=== PATIENT | female | born 1950 | race African-American/Black ===

== ENCOUNTER 2018-05-15 12:17 | Inpatient (IN) | payer MEDICARE, OTHER ==
[2018-05-15] MEDS ORDERED: CONTRAST GIVEN. MC (12:45)
[2018-05-15] MEDS: IOHEXOL 300 MG/ML 100ML VIAL. IV (12:45)
[2018-05-15] MEDS: ONDANSETRON PF 4 MG/2 ML VIAL. IV ×3 (12:57→17:42)
[2018-05-15] MEDS: IV NORMAL SALINE 1000ML BAG 1,000 ML IV ×2 (12:58→16:09)
[2018-05-15] MEDS: DICYCLOMINE 20 MG/2 ML AMPUL. IM (13:00)
[2018-05-15] MEDS: PANTOPRAZOLE IV PUSH 40 MG VIAL. IVP ×2 (13:02→17:47)
[2018-05-15 13:11] LABS: ADD MAN DIFF? NO
[2018-05-15 13:13] LABS: BASO # 0.1 x10^3/uL (0.0-0.2); BASO % 1 % (0-3); EOS # 0.1 x10^3/uL (0.0-0.7); EOS % 1 % (0-3); HEMOGLOBIN 13.4 g/dL (12.0-15.5); LYMPH # 3.4 x10^3/uL (1.0-4.8); LYMPH % 22 % (24-48); MEAN CORPUSCULAR HEMOGLOBIN 29 pg (25-35); MEAN CORPUSCULAR HGB CONC 34 g/dL (31-37); MEAN CORPUSCULAR VOLUME 87 fL (79-100); MONO # 0.7 x10^3/uL (0.0-1.1); MONO % 4 % (0-9); NEUT # 11.6 x10^3uL (1.8-7.7); NEUT % 73 % (31-73); PLATELET COUNT 441 x10^3/uL (140-400); RED BLOOD COUNT 4.61 x10^6/uL (3.50-5.40); RED CELL DISTRIBUTION WIDTH 14.8 % (11.5-14.5); WHITE BLOOD COUNT 15.9 x10^3/uL (4.0-11.0)
[2018-05-15 13:22] LABS: BILIRUBIN,URINE NEGATIVE (NEG); CLARITY,URINE CLEAR; COLOR,URINE YELLOW; GLUCOSE,URINE NEGATIVE (NEG); NITRITE,URINE NEGATIVE (NEG); PROTEIN,URINE >=300 mg/dL (NEG-TRACE); UROBILINOGEN,URINE 0.2 mg/dL (0.2 mg/dL)
[2018-05-15 13:34] LABS: BACTERIA,URINE MODERATE /HPF (0-FEW); HYALINE CASTS, URINE MODERATE /HPF; RBC,URINE OCC /HPF (0-2); SQUAMOUS EPITHELIAL CELL,UR FEW /LPF
[2018-05-15 13:44] LABS: BARBITURATES NEG (NEG); BENZODIAZEPINES POS (NEG); CANNABINOIDS POS (NEG); COCAINE NEG (NEG); METHADONE NEG (NEG); OPIATES POS (NEG); PHENCYCLIDINE NEG (NEG)
[2018-05-15 13:46] LABS: AMPHETAMINE/METHAMPHETAMINE NEG (NEG); ETHANOL, URINE NEG (NEG)
[2018-05-15 13:46] LABS: ETHANOL < 10 mg/dL (0-10)
[2018-05-15 13:48] LABS: ANION GAP 14 (6-14); BLOOD UREA NITROGEN 7 mg/dL (7-20); BUN/CREATININE RATIO 7 (6-20); CALCIUM 9.5 mg/dL (8.5-10.1); CARBON DIOXIDE 26 mmol/L (21-32); CHLORIDE 100 mmol/L (98-107); GFR 66.3; GLUCOSE 168 mg/dL (70-99); POTASSIUM 3.2 mmol/L (3.5-5.1); SODIUM 140 mmol/L (136-145)
[2018-05-15 13:53] LABS: ALBUMIN 4.2 g/dL (3.4-5.0); ALBUMIN/GLOBULIN RATIO 1.1 (1.0-1.7); ALK PHOS 68 U/L (46-116); ALT (SGPT) 22 U/L (14-59); AST (SGOT) 16 U/L (15-37); LIPASE 98 U/L (73-393); TOTAL BILIRUBIN 0.1 mg/dL (0.2-1.0); TOTAL PROTEIN 8.2 g/dL (6.4-8.2)
[2018-05-15] MEDS: MORPHINE SULFATE 10 MG/ML VIAL. IV (14:04)
[2018-05-15] MEDS: PROCHLORPERAZINE 10 MG/2 ML VIAL. IV (14:53)
[2018-05-15] MEDS ORDERED: ONDANSETRON PF 4 MG/2 ML VIAL. IV (15:30)
[2018-05-15] MEDS ORDERED: traMADol 50 MG TABLET PO (15:45)
[2018-05-15] MEDS ORDERED: NICOTINE 21MG PATCH. TD (16:00)
[2018-05-15] MEDS ORDERED: POTASSIUM CL 20MEQ D5-0.45NACL 1,000 ML IV (16:15)
[2018-05-15] MEDS: LABETALOL HCL 200 MG TABLET PO ×2 (16:30→20:53)
[2018-05-15] MEDS: MORPHINE SULFATE 4 MG/ML DISP.SYRIN. IV ×2 (17:39→20:54)
[2018-05-15] MEDS: CIPROFLOXACIN 400MG PREMIX 200 ML IV (19:24)
[2018-05-15] MEDS: SIMVASTATIN 20 MG TABLET PO (20:53)
[2018-05-15] MEDS: AMITRIPTYLINE HCL 50 MG TABLET PO (20:53)
[2018-05-15] MEDS ORDERED: CIPROFLOXACIN 400MG PREMIX 200 ML IV (21:00)
[2018-05-16] MEDS: POTASSIUM CL 20MEQ D5-0.45NACL 1,000 ML IV ×3 (00:25→13:00)
[2018-05-16] MEDS: MORPHINE SULFATE 4 MG/ML DISP.SYRIN. IV ×4 (01:22→11:03)
[2018-05-16] MEDS: LABETALOL HCL 200 MG TABLET PO ×2 (05:12→14:00)
[2018-05-16] MEDS: ONDANSETRON PF 4 MG/2 ML VIAL. IV (05:23)
[2018-05-16 06:20] LABS: C DIFF BY PCR Negative (Negative)
[2018-05-16] MEDS: FERROUS SULFATE 325 MG TABLET. PO (08:00)
[2018-05-16] MEDS: CIPROFLOXACIN 400MG PREMIX 200 ML IV ×2 (08:59→20:49)
[2018-05-16] MEDS: PANTOPRAZOLE IV PUSH 40 MG VIAL. IVP (08:59)
[2018-05-16] MEDS: LOSARTAN POTASSIUM 50 MG TABLET. PO (09:00)
[2018-05-16] MEDS ORDERED: ESTROGENS, CONJUGATED 0.3 MG TABLET PO (09:00)
[2018-05-16] MEDS: CITALOPRAM 20 MG TABLET. PO (09:00)
[2018-05-16] MEDS: ESTROGENS, CONJUGATED 0.3 MG TABLET PO (09:00)
[2018-05-16] MEDS: PROCHLORPERAZINE 10 MG/2 ML VIAL. IV ×3 (11:02→22:12)
[2018-05-16] MEDS: METOPROLOL TART IMMED RELEASE 50 MG TABLET. PO ×2 (16:09→20:50)
[2018-05-16] MEDS: SIMVASTATIN 20 MG TABLET PO (20:49)
[2018-05-16] MEDS: AMITRIPTYLINE HCL 50 MG TABLET PO (20:49)
[2018-05-16] MEDS: LACTOBACILLUS RHAMNOSUS GG 1 CAPSULE. PO (20:49)
[2018-05-16] MEDS: HYDROcodone/APAP 7.5/325MG 1 TAB TABLET PO (20:50)
[2018-05-17 05:19] LABS: ADD MAN DIFF? NO
[2018-05-17 05:29] LABS: BASO # 0.1 x10^3/uL (0.0-0.2); BASO % 1 % (0-3); EOS # 0.3 x10^3/uL (0.0-0.7); EOS % 2 % (0-3); HEMATOCRIT 36.4 % (36.0-47.0); LYMPH # 2.6 x10^3/uL (1.0-4.8); LYMPH % 22 % (24-48); MEAN CORPUSCULAR HEMOGLOBIN 29 pg (25-35); MEAN CORPUSCULAR HGB CONC 33 g/dL (31-37); MEAN CORPUSCULAR VOLUME 88 fL (79-100); MONO # 0.7 x10^3/uL (0.0-1.1); MONO % 6 % (0-9); NEUT # 8.1 x10^3uL (1.8-7.7); NEUT % 69 % (31-73); PLATELET COUNT 304 x10^3/uL (140-400); RED BLOOD COUNT 4.16 x10^6/uL (3.50-5.40); RED CELL DISTRIBUTION WIDTH 15.2 % (11.5-14.5); WHITE BLOOD COUNT 11.7 x10^3/uL (4.0-11.0)
[2018-05-17 05:51] LABS: ANION GAP 8 (6-14); BLOOD UREA NITROGEN 4 mg/dL (7-20); CALCIUM 8.9 mg/dL (8.5-10.1); CARBON DIOXIDE 27 mmol/L (21-32); CHLORIDE 105 mmol/L (98-107); CREATININE 0.8 mg/dL (0.6-1.0); GFR 85.8; GLUCOSE 127 mg/dL (70-99); POTASSIUM 3.5 mmol/L (3.5-5.1); SODIUM 140 mmol/L (136-145)
[2018-05-17] MEDS: POTASSIUM CL 20MEQ D5-0.45NACL 1,000 ML IV ×4 (06:02→18:28)
[2018-05-17] MEDS: PROCHLORPERAZINE 10 MG/2 ML VIAL. IV ×3 (06:07→22:19)
[2018-05-17] MEDS: METOPROLOL TART IMMED RELEASE 50 MG TABLET. PO ×2 (08:05→21:58)
[2018-05-17] MEDS: ESTROGENS, CONJUGATED 0.3 MG TABLET PO (08:05)
[2018-05-17] MEDS: FERROUS SULFATE 325 MG TABLET. PO (08:05)
[2018-05-17] MEDS: LACTOBACILLUS RHAMNOSUS GG 1 CAPSULE. PO ×2 (08:05→21:58)
[2018-05-17] MEDS: LOSARTAN POTASSIUM 50 MG TABLET. PO (08:06)
[2018-05-17] MEDS: CITALOPRAM 20 MG TABLET. PO (08:06)
[2018-05-17] MEDS: PANTOPRAZOLE 40 MG TABLET.DR. PO (08:07)
[2018-05-17] MEDS: CIPROFLOXACIN 400MG PREMIX 200 ML IV (08:08)
[2018-05-17] MEDS: HYDROcodone/APAP 7.5/325MG 1 TAB TABLET PO (13:00)
[2018-05-17] MEDS: AMITRIPTYLINE HCL 50 MG TABLET PO (21:58)
[2018-05-17] MEDS: SIMVASTATIN 20 MG TABLET PO (21:58)
[2018-05-18] MEDS: CIPROFLOXACIN 400MG PREMIX 200 ML IV (00:06)
[2018-05-18 05:40] LABS: ADD MAN DIFF? NO
[2018-05-18 05:45] LABS: BASO # 0.1 x10^3/uL (0.0-0.2); BASO % 1 % (0-3); EOS # 0.5 x10^3/uL (0.0-0.7); EOS % 5 % (0-3); HEMATOCRIT 38.6 % (36.0-47.0); HEMOGLOBIN 12.8 g/dL (12.0-15.5); LYMPH # 2.3 x10^3/uL (1.0-4.8); LYMPH % 25 % (24-48); MEAN CORPUSCULAR HEMOGLOBIN 29 pg (25-35); MEAN CORPUSCULAR HGB CONC 33 g/dL (31-37); MEAN CORPUSCULAR VOLUME 88 fL (79-100); MONO # 0.6 x10^3/uL (0.0-1.1); MONO % 7 % (0-9); NEUT # 5.7 x10^3uL (1.8-7.7); NEUT % 62 % (31-73); PLATELET COUNT 319 x10^3/uL (140-400); RED BLOOD COUNT 4.38 x10^6/uL (3.50-5.40); RED CELL DISTRIBUTION WIDTH 14.7 % (11.5-14.5); WHITE BLOOD COUNT 9.2 x10^3/uL (4.0-11.0)
[2018-05-18 06:06] LABS: ANION GAP 10 (6-14); BLOOD UREA NITROGEN 6 mg/dL (7-20); CALCIUM 8.7 mg/dL (8.5-10.1); CARBON DIOXIDE 24 mmol/L (21-32); CHLORIDE 104 mmol/L (98-107); CREATININE 0.9 mg/dL (0.6-1.0); GFR 74.9; GLUCOSE 139 mg/dL (70-99); POTASSIUM 3.4 mmol/L (3.5-5.1); SODIUM 138 mmol/L (136-145)
[2018-05-18] MEDS: PROCHLORPERAZINE 10 MG/2 ML VIAL. IV ×3 (06:06→22:12)
[2018-05-18] MEDS: ONDANSETRON PF 4 MG/2 ML VIAL. IV ×2 (09:09→17:30)
[2018-05-18] MEDS: POTASSIUM CL 20MEQ D5-0.45NACL 1,000 ML IV ×2 (09:32→16:37)
[2018-05-18] MEDS: PANTOPRAZOLE 40 MG TABLET.DR. PO (09:35)
[2018-05-18] MEDS: FERROUS SULFATE 325 MG TABLET. PO ×2 (09:35→13:26)
[2018-05-18] MEDS: HYDROcodone/APAP 7.5/325MG 1 TAB TABLET PO ×2 (09:37→17:29)
[2018-05-18] MEDS: CITALOPRAM 20 MG TABLET. PO (09:37)
[2018-05-18] MEDS: CIPROFLOXACIN HCL 250 MG TABLET. PO (10:20)
[2018-05-18] MEDS: LOSARTAN POTASSIUM 50 MG TABLET. PO (10:55)
[2018-05-18] MEDS: METOPROLOL TART IMMED RELEASE 50 MG TABLET. PO ×2 (10:56→22:12)
[2018-05-18] MEDS: LABETALOL 20 MG/4 ML DISP.SYRIN. IVP ×3 (11:09→20:42)
[2018-05-18] MEDS: MORPHINE SULFATE 2 MG/ML DISP.SYRIN. IV ×3 (12:39→20:40)
[2018-05-18] MEDS: ESTROGENS, CONJUGATED 0.3 MG TABLET PO (13:26)
[2018-05-18] MEDS: LACTOBACILLUS RHAMNOSUS GG 1 CAPSULE. PO ×2 (13:26→21:00)
[2018-05-18] MEDS: AMITRIPTYLINE HCL 50 MG TABLET PO (22:12)
[2018-05-18] MEDS: SIMVASTATIN 20 MG TABLET PO (22:12)
[2018-05-19] MEDS: POTASSIUM CL 20MEQ D5-0.45NACL 1,000 ML IV ×3 (03:07→20:25)
[2018-05-19] MEDS: MORPHINE SULFATE 2 MG/ML DISP.SYRIN. IV ×6 (04:33→22:43)
[2018-05-19] MEDS: ONDANSETRON PF 4 MG/2 ML VIAL. IV ×2 (04:34→08:17)
[2018-05-19 05:26] LABS: ADD MAN DIFF? NO
[2018-05-19 05:38] LABS: BASO % 0 % (0-3); EOS % 0 % (0-3); HEMATOCRIT 43.1 % (36.0-47.0); HEMOGLOBIN 14.4 g/dL (12.0-15.5); LYMPH # 1.9 x10^3/uL (1.0-4.8); LYMPH % 14 % (24-48); MEAN CORPUSCULAR HEMOGLOBIN 29 pg (25-35); MEAN CORPUSCULAR HGB CONC 33 g/dL (31-37); MEAN CORPUSCULAR VOLUME 88 fL (79-100); MONO # 0.9 x10^3/uL (0.0-1.1); MONO % 6 % (0-9); NEUT # 11.3 x10^3uL (1.8-7.7); NEUT % 80 % (31-73); PLATELET COUNT 379 x10^3/uL (140-400); RED BLOOD COUNT 4.92 x10^6/uL (3.50-5.40); RED CELL DISTRIBUTION WIDTH 14.9 % (11.5-14.5); WHITE BLOOD COUNT 14.1 x10^3/uL (4.0-11.0)
[2018-05-19] MEDS: PROCHLORPERAZINE 10 MG/2 ML VIAL. IV ×3 (06:09→20:24)
[2018-05-19 06:23] LABS: BLOOD UREA NITROGEN 7 mg/dL (7-20); CALCIUM 8.5 mg/dL (8.5-10.1); CARBON DIOXIDE 20 mmol/L (21-32); CHLORIDE 99 mmol/L (98-107); CREATININE 0.9 mg/dL (0.6-1.0); GFR 74.9; GLUCOSE 178 mg/dL (70-99); POTASSIUM 3.5 mmol/L (3.5-5.1)
[2018-05-19 06:28] LABS: ANION GAP 9 (6-14); SODIUM 128 mmol/L (136-145)
[2018-05-19] MEDS: LOSARTAN POTASSIUM 50 MG TABLET. PO (08:18)
[2018-05-19] MEDS: METOPROLOL TART IMMED RELEASE 50 MG TABLET. PO ×2 (08:18→20:23)
[2018-05-19] MEDS: PANTOPRAZOLE 40 MG TABLET.DR. PO (08:19)
[2018-05-19] MEDS: ESTROGENS, CONJUGATED 0.3 MG TABLET PO (08:19)
[2018-05-19] MEDS: LACTOBACILLUS RHAMNOSUS GG 1 CAPSULE. PO ×2 (08:19→20:25)
[2018-05-19] MEDS: CITALOPRAM 20 MG TABLET. PO (08:19)
[2018-05-19] MEDS: FERROUS SULFATE 325 MG TABLET. PO (08:19)
[2018-05-19] MEDS: LABETALOL 20 MG/4 ML DISP.SYRIN. IVP ×4 (12:47→22:44)
[2018-05-19] MEDS: AMITRIPTYLINE HCL 50 MG TABLET PO (20:24)
[2018-05-19] MEDS: SIMVASTATIN 20 MG TABLET PO (20:25)
[2018-05-20] MEDS: MORPHINE SULFATE 2 MG/ML DISP.SYRIN. IV ×7 (02:12→22:35)
[2018-05-20 05:13] LABS: ADD MAN DIFF? NO
[2018-05-20 05:36] LABS: BASO # 0.1 x10^3/uL (0.0-0.2); BASO % 1 % (0-3); EOS % 0 % (0-3); HEMATOCRIT 42.7 % (36.0-47.0); LYMPH # 2.3 x10^3/uL (1.0-4.8); LYMPH % 20 % (24-48); MEAN CORPUSCULAR HEMOGLOBIN 29 pg (25-35); MEAN CORPUSCULAR HGB CONC 33 g/dL (31-37); MEAN CORPUSCULAR VOLUME 89 fL (79-100); MONO # 0.9 x10^3/uL (0.0-1.1); MONO % 8 % (0-9); NEUT # 8.1 x10^3uL (1.8-7.7); NEUT % 71 % (31-73); PLATELET COUNT 332 x10^3/uL (140-400); RED BLOOD COUNT 4.82 x10^6/uL (3.50-5.40); RED CELL DISTRIBUTION WIDTH 15.1 % (11.5-14.5); WHITE BLOOD COUNT 11.4 x10^3/uL (4.0-11.0)
[2018-05-20] MEDS: PROCHLORPERAZINE 10 MG/2 ML VIAL. IV ×3 (05:57→20:26)
[2018-05-20] MEDS: POTASSIUM CL 20MEQ D5-0.45NACL 1,000 ML IV ×2 (05:57→18:25)
[2018-05-20 07:25] LABS: ANION GAP 9 (6-14); BLOOD UREA NITROGEN 6 mg/dL (7-20); CALCIUM 8.5 mg/dL (8.5-10.1); CARBON DIOXIDE 24 mmol/L (21-32); CHLORIDE 98 mmol/L (98-107); CREATININE 0.8 mg/dL (0.6-1.0); GFR 85.8; GLUCOSE 150 mg/dL (70-99); POTASSIUM 3.9 mmol/L (3.5-5.1); SODIUM 131 mmol/L (136-145)
[2018-05-20] MEDS: PANTOPRAZOLE 40 MG TABLET.DR. PO (07:30)
[2018-05-20] MEDS: FERROUS SULFATE 325 MG TABLET. PO (08:00)
[2018-05-20] MEDS: LACTOBACILLUS RHAMNOSUS GG 1 CAPSULE. PO ×2 (09:00→21:00)
[2018-05-20] MEDS: METOPROLOL TART IMMED RELEASE 50 MG TABLET. PO ×2 (09:00→21:00)
[2018-05-20] MEDS: CITALOPRAM 20 MG TABLET. PO (09:00)
[2018-05-20] MEDS: ESTROGENS, CONJUGATED 0.3 MG TABLET PO (09:00)
[2018-05-20] MEDS: LOSARTAN POTASSIUM 50 MG TABLET. PO (09:00)
[2018-05-20] MEDS: LABETALOL 20 MG/4 ML DISP.SYRIN. IVP ×2 (09:22→15:12)
[2018-05-20] MEDS: ONDANSETRON PF 4 MG/2 ML VIAL. IV ×2 (09:25→22:34)
[2018-05-20] MEDS: AMITRIPTYLINE HCL 50 MG TABLET PO (21:00)
[2018-05-20] MEDS: SIMVASTATIN 20 MG TABLET PO (21:00)
[2018-05-21] MEDS: MORPHINE SULFATE 2 MG/ML DISP.SYRIN. IV ×6 (02:40→18:58)
[2018-05-21] MEDS: POTASSIUM CL 20MEQ D5-0.45NACL 1,000 ML IV ×2 (02:40→15:04)
[2018-05-21 05:03] LABS: ADD MAN DIFF? NO
[2018-05-21 05:04] LABS: BASO % 1 % (0-3); EOS # 0.1 x10^3/uL (0.0-0.7); EOS % 1 % (0-3); HEMATOCRIT 40.6 % (36.0-47.0); HEMOGLOBIN 13.4 g/dL (12.0-15.5); LYMPH # 2.7 x10^3/uL (1.0-4.8); LYMPH % 26 % (24-48); MEAN CORPUSCULAR HEMOGLOBIN 29 pg (25-35); MEAN CORPUSCULAR HGB CONC 33 g/dL (31-37); MEAN CORPUSCULAR VOLUME 88 fL (79-100); MONO % 10 % (0-9); NEUT # 6.7 x10^3uL (1.8-7.7); NEUT % 63 % (31-73); PLATELET COUNT 345 x10^3/uL (140-400); RED BLOOD COUNT 4.63 x10^6/uL (3.50-5.40); RED CELL DISTRIBUTION WIDTH 14.8 % (11.5-14.5); WHITE BLOOD COUNT 10.6 x10^3/uL (4.0-11.0)
[2018-05-21] MEDS: PROCHLORPERAZINE 10 MG/2 ML VIAL. IV ×3 (05:15→20:39)
[2018-05-21 05:21] LABS: ANION GAP 6 (6-14); BLOOD UREA NITROGEN 5 mg/dL (7-20); CALCIUM 8.6 mg/dL (8.5-10.1); CARBON DIOXIDE 27 mmol/L (21-32); CHLORIDE 98 mmol/L (98-107); CREATININE 0.7 mg/dL (0.6-1.0); GFR 100.1; GLUCOSE 145 mg/dL (70-99); POTASSIUM 3.6 mmol/L (3.5-5.1); SODIUM 131 mmol/L (136-145)
[2018-05-21] MEDS: FERROUS SULFATE 325 MG TABLET. PO (08:00)
[2018-05-21] MEDS: LABETALOL 20 MG/4 ML DISP.SYRIN. IVP ×2 (08:34→12:43)
[2018-05-21] MEDS: ONDANSETRON PF 4 MG/2 ML VIAL. IV (10:35)
[2018-05-21] MEDS: LOSARTAN POTASSIUM 50 MG TABLET. PO (12:17)
[2018-05-21] MEDS: PANTOPRAZOLE 40 MG TABLET.DR. PO (12:18)
[2018-05-21] MEDS: METOPROLOL TART IMMED RELEASE 50 MG TABLET. PO ×2 (12:18→20:39)
[2018-05-21] MEDS: CITALOPRAM 20 MG TABLET. PO (13:09)
[2018-05-21] MEDS: ESTROGENS, CONJUGATED 0.3 MG TABLET PO (13:09)
[2018-05-21] MEDS: LACTOBACILLUS RHAMNOSUS GG 1 CAPSULE. PO ×2 (13:09→20:39)
[2018-05-21] MEDS: SIMVASTATIN 20 MG TABLET PO (20:39)
[2018-05-21] MEDS: AMITRIPTYLINE HCL 50 MG TABLET PO (20:39)
[2018-05-22] MEDS: POTASSIUM CL 20MEQ D5-0.45NACL 1,000 ML IV ×2 (00:44→10:47)
[2018-05-22 05:10] LABS: ADD MAN DIFF? NO
[2018-05-22 05:26] LABS: BASO # 0.1 x10^3/uL (0.0-0.2); BASO % 1 % (0-3); EOS # 0.4 x10^3/uL (0.0-0.7); EOS % 4 % (0-3); HEMATOCRIT 33.2 % (36.0-47.0); LYMPH # 3.5 x10^3/uL (1.0-4.8); LYMPH % 35 % (24-48); MEAN CORPUSCULAR HEMOGLOBIN 29 pg (25-35); MEAN CORPUSCULAR HGB CONC 33 g/dL (31-37); MEAN CORPUSCULAR VOLUME 89 fL (79-100); MONO # 0.9 x10^3/uL (0.0-1.1); MONO % 9 % (0-9); NEUT # 5.2 x10^3uL (1.8-7.7); NEUT % 51 % (31-73); PLATELET COUNT 285 x10^3/uL (140-400); RED BLOOD COUNT 3.75 x10^6/uL (3.50-5.40); RED CELL DISTRIBUTION WIDTH 14.9 % (11.5-14.5); WHITE BLOOD COUNT 10.1 x10^3/uL (4.0-11.0)
[2018-05-22] MEDS: PROCHLORPERAZINE 10 MG/2 ML VIAL. IV (05:42)
[2018-05-22 06:17] LABS: ANION GAP 8 (6-14); BLOOD UREA NITROGEN 9 mg/dL (7-20); CALCIUM 7.7 mg/dL (8.5-10.1); CARBON DIOXIDE 24 mmol/L (21-32); CHLORIDE 104 mmol/L (98-107); GFR 66.3; GLUCOSE 99 mg/dL (70-99); POTASSIUM 3.9 mmol/L (3.5-5.1); SODIUM 136 mmol/L (136-145)
[2018-05-22] MEDS: PANTOPRAZOLE 40 MG TABLET.DR. PO (07:30)
[2018-05-22] MEDS: FERROUS SULFATE 325 MG TABLET. PO (08:00)
[2018-05-22] MEDS: ESTROGENS, CONJUGATED 0.3 MG TABLET PO (09:00)
[2018-05-22] MEDS: METOPROLOL TART IMMED RELEASE 50 MG TABLET. PO (09:00)
[2018-05-22] MEDS: LACTOBACILLUS RHAMNOSUS GG 1 CAPSULE. PO (09:00)
[2018-05-22] MEDS: LOSARTAN POTASSIUM 50 MG TABLET. PO (09:00)
[2018-05-22] MEDS: CITALOPRAM 20 MG TABLET. PO (09:00)
== END 2018-05-22 15:15 | disposition home or self-care (01) | DRG 872 ==
LOC: ER 12:17 → 5 SOUTH 15:15
DX: A41.9 Sepsis, unspecified organism (principal); A09 Infectious gastroenteritis and colitis, unspecified; E78.5 Hyperlipidemia, unspecified; E87.6 Hypokalemia; E78.00 Pure hypercholesterolemia, unspecified; F32.9 Major depressive disorder, single episode, unspecified; F41.9 Anxiety disorder, unspecified; G89.29 Other chronic pain; I10 Essential (primary) hypertension; K21.9 Gastro-esophageal reflux disease without esophagitis; M19.90 Unspecified osteoarthritis, unspecified site; F12.90 Cannabis use, unspecified, uncomplicated; F17.210 Nicotine dependence, cigarettes, uncomplicated; Z82.49 Family history of ischemic heart disease and other diseases of the circulatory system; Z86.73 Personal history of transient ischemic attack (TIA), and cerebral infarction without residual deficits; Z90.710 Acquired absence of both cervix and uterus; Z85.41 Personal history of malignant neoplasm of cervix uteri; Z87.01 Personal history of pneumonia (recurrent)
CPT/HCPCS: 36415; 74177; 80048; 80053; 80307; 81001; 83690; 85025; 87045; 87086; 87324; 96361; 96365; 96372; 96375; 96376; 97116-GP; 97161-GP; 99285; 99285-25; C9113; G0480; J0500; J0690; J0744; J0780; J2270; J2405; J3490; J7030

== ENCOUNTER 2019-02-18 20:03 | Inpatient (IN) | payer MEDICARE, OTHER ==
[~2019-02-18] VITALS: Ht 154.9 cm; Wt 59.2 kg
[~2019-02-18 20:03] MED LIST: AMIT75TA PO; ASPI1TAB62 PO; ESCITALOPRAM OX10 MG PO; ESTR0.3T PO; FERR325T14 PO; FERR325T72 PO; HYDR-2679 PO; HYDR-2765 PO; LABE200T4 PO; LOSA-73 PO; Nicotine 21MG TD; SIMV20TA3 PO; TRAM-48 PO; TRAM50TA PO; VARE1TAB21 PO
--- NOTE | 2019-02-18 21:07 | PHYS DOC ---
Past Medical History Past Medical History: Arthritis, Cancer, High Cholesterol, Hypertension, Other Additional Past Medical Histor: BRAIN ANEURSYM (1998), CERVICAL CANCER Past Surgical History: Hysterectomy Alcohol Use: None Drug Use: None Adult General Chief Complaint Chief Complaint: NEURO SYMPTOMS/DEFICITS [facility] Patient is a 69 year old [f__sex] who presents with [] Review of Systems Review of Systems Constitutional: Denies fever or chills [] Eyes: Denies change in visual acuity, redness, or eye pain [] HENT: Denies nasal congestion or sore throat [] Respiratory: Denies cough or shortness of breath [] Cardiovascular: No additional information not addressed in [facility] [] GI: Denies abdominal pain, nausea, vomiting, bloody stools or diarrhea [] : Denies dysuria or hematuria [] Musculoskeletal: Denies back pain or joint pain [] Integument: Denies rash or skin lesions [] Neurologic: Denies headache, focal weakness or sensory changes [] Endocrine: Denies polyuria or polydipsia [] All other systems were reviewed and found to be within normal limits, except as documented in this note. Current Medications Current Medications Allergies Allergies Allergies Coded Allergies Type Severity Reaction Last Updated Verified No Known Drug Allergies 09/21/15 No Physical Exam Physical Exam Constitutional: Well developed, well nourished, no acute distress, non-toxic appearance. [] HENT: Normocephalic, atraumatic, bilateral external ears normal, oropharynx moist, no oral exudates, nose normal. [] Eyes: PERRLA, EOMI, conjunctiva normal, no discharge. [] Neck: Normal range of motion, no tenderness, supple, no stridor. [] Cardiovascular:Heart rate regular rhythm, no murmur [] Lungs & Thorax: Bilateral breath sounds clear to auscultation [] Abdomen: Bowel sounds normal, soft, no tenderness, no masses, no pulsatile masses. [] Skin: Warm, dry, no erythema, no rash. [] Back: No tenderness, no CVA tenderness. [] Extremities: No tenderness, no cyanosis, no clubbing, ROM intact, no edema. [] Neurologic: Alert and oriented X 3, normal motor function, normal sensory function, no focal deficits noted. [] Psychologic: Affect normal, judgement normal, mood normal. [] Current Patient Data Vital Signs Vital Signs Date Time Temp Pulse Resp B/P (MAP) Pulse Ox O2 Delivery O2 Flow Rate FiO2 02/18/19 20:11 108 95 02/18/19 20:05 98.7 19 141/62 (88) Room Air 98.7 EKG EKG @2126 Sinus rhythm at 97bpm, NO ST elevation, LVH, nonspecific t wave inversion I and aVL. Radiology/Procedures Radiology/Procedures [] Course & Med Decision Making Course & Med Decision Making Pertinent Labs and Imaging studies reviewed. (See chart for details) [] Dragon Disclaimer Dragon Disclaimer This electronic medical record was generated, in whole or in part, using a voice recognition dictation system. Departure Departure Impression: Primary Impression: Generalized weakness Disposition: ADMITTED INPATIENT Admitting Physician: Judah Vaughan Condition: STABLE Referrals: ACOSTA MARLEY MD (PCP) NIHSS Stroke Scale NIH Stroke Scale: NIH Stroke Scale Response (Comments) Value Level of Consciousness: 0 Alert/Responsive 0 LOC Questions: 0 Answers both correctly 0 LOC Commands: 0 Performs both tasks 0 Best Gaze: 0 Normal 0 Visual: 0 No visual loss 0 Facial Palsy: 0 Normal, symmetrical 0 Motor - Left Arm 0 No drift 0 Motor - Right Arm 0 No drift 0 Motor - Left Leg 0 No drift 0 Motor: Right Leg 0 No drift 0 Limb Ataxia: 0 Absent 0 Sensory: 0 No loss 0 Best Language: 0 Normal 0 Dysathria: 0 Normal 0 Extinction and Inattention: 0 Normal 0 Total 0 RICHARDSROBERT DO Feb 18, 2019 21:07
[2019-02-18] MEDS ORDERED: ONDANSETRON PF 4 MG/2 ML VIAL. IV PRN (21:15)
[2019-02-18 21:26] LABS: BASO # 0.1 x10^3/uL (0.0-0.2); BASO % 1 % (0-3); EOS % 0 % (0-3); HEMATOCRIT 35.7 % (36.0-47.0); HEMOGLOBIN 11.7 g/dL (12.0-15.5); LYMPH # 1.1 x10^3/uL (1.0-4.8); LYMPH % 8 % (24-48); MEAN CORPUSCULAR HEMOGLOBIN 27 pg (25-35); MEAN CORPUSCULAR HGB CONC 33 g/dL (31-37); MEAN CORPUSCULAR VOLUME 83 fL (79-100); MONO # 0.9 x10^3/uL (0.0-1.1); MONO % 7 % (0-9); NEUT % 84 % (31-73); PLATELET COUNT 295 x10^3/uL (140-400); RED BLOOD COUNT 4.29 x10^6/uL (3.50-5.40); RED CELL DISTRIBUTION WIDTH 14.3 % (11.5-14.5); WHITE BLOOD COUNT 13.1 x10^3/uL (4.0-11.0)
[2019-02-18] MEDS ORDERED: IV NORMAL SALINE 1000ML BAG 1,000 ML IV ONE (21:30)
[2019-02-18 21:35] LABS: CALCIUM 9.1 mg/dL (8.5-10.1); CREATININE 1.1 mg/dL (0.6-1.0); GFR 59.2; POTASSIUM 3.8 mmol/L (3.5-5.1)
[2019-02-18 21:37] LABS: PROTHROMBIN TIME PATIENT 12.2 SEC (11.7-14.0)
[2019-02-18 21:41] LABS: ALBUMIN 3.4 g/dL (3.4-5.0); ALBUMIN/GLOBULIN RATIO 0.8 (1.0-1.7); TOTAL BILIRUBIN 0.2 mg/dL (0.2-1.0); TOTAL PROTEIN 7.5 g/dL (6.4-8.2)
--- NOTE | 2019-02-18 21:45 | RAD ---
CT HEAD WO CONTRAST Indication: WEAKNESS HX OF STROKE 2017 AND CEREBRAL ANEURYSM TOO SMALL FOR SX PT STATES Exposure: One or more of the following individualized dose reduction techniques were utilized for this examination: 1. Automated exposure control 2. Adjustment of the mA and/or kV according to patient size 3. Use of iterative reconstruction technique. Technique: Standard imaging without intravenous contrast. Comparison with prior study of 10/13/2017, the images are available but not the report. There is some density within the left zully, unchanged since prior study, presumably calcification. No evidence of acute intracranial hemorrhage, mass effect, midline shift or abnormal extra-axial fluid collection. Ventricles and sulci are within normal limits. No evidence of acute skull abnormality. The partially visualized sinuses are clear. There are some surgical type changes at the right frontal bone. No evidence of significant scalp swelling. The partially seen orbits appear symmetric. IMPRESSION: No evidence of acute infarct cranial hemorrhage or mass effect. Electronically signed by: Sanjay Burdick MD (02/18/2019 9:41 PM) [facility]
[2019-02-18 21:49] LABS: CREATINE KINASE 58 U/L (26-192)
--- NOTE | 2019-02-18 21:57 | RAD ---
PORTABLE CHEST 1V History: DIZZINESS, TROUBLE WALKING. HX OF STROKE. Comparison with 10/13/2017. Heart size is not enlarged. No evidence of pneumothorax. No pleural effusion. No evidence of an infiltrate. Mild aortic calcification. No evidence of acute skeletal abnormality. IMPRESSION: No evidence of consolidating infiltrate. Electronically signed by: Sanjay Burdick MD (02/18/2019 9:54 PM) [facility]
[2019-02-18] MEDS ORDERED: ASPIRIN 325 MG TABLET PO ONE (22:00)
[2019-02-18] MEDS ORDERED: LABETALOL 20 MG/4 ML DISP.SYRIN. IVP ONE (22:30)
[2019-02-18] MEDS ORDERED: amLODIPine BESYLATE 5 MG TABLET PO ONE (22:30)
[2019-02-18 22:40] VITALS: BP 193/66
[2019-02-18] MEDS ORDERED: METO25TA4 PO (22:55)
[2019-02-18] MEDS ORDERED: AMLO10TA8 PO (22:55)
[2019-02-18 23:24] LABS: BILIRUBIN,URINE NEGATIVE (NEG); CLARITY,URINE CLOUDY; COLOR,URINE YELLOW; NITRITE,URINE POSITIVE (NEG); PH,URINE 7.5; PROTEIN,URINE 30 mg/dL (NEG-TRACE); UROBILINOGEN,URINE 0.2 mg/dL (0.2 mg/dL)
[2019-02-18 23:28] LABS: BACTERIA,URINE MANY /HPF (0-FEW); RBC,URINE OCC /HPF (0-2); WBC,URINE >40 /HPF (0-4)
[2019-02-18 23:29] LABS: SQUAMOUS EPITHELIAL CELL,UR MOD /LPF
[2019-02-19] VITALS (8 sets, daily range): BP systolic 104–172; BP diastolic 44–68
--- NOTE | 2019-02-19 07:34 | EKG ---
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
[2019-02-19] MEDS: traMADol 50 MG TABLET PO PRN (08:00)
[2019-02-19] MEDS: METOPROLOL TART IMMED RELEASE 25 MG TABLET. PO SCH ×2 (08:03→20:56)
[2019-02-19] MEDS ORDERED: amLODIPine BESYLATE 10 MG TABLET PO SCH (09:00)
[2019-02-19] MEDS ORDERED: ASPIRIN RECTAL 300 MG SUPP. PR PRN (09:00)
[2019-02-19] MEDS ORDERED: LABETALOL 20 MG/4 ML DISP.SYRIN. IVP PRN (09:00)
[2019-02-19] MEDS ORDERED: ACETAMINOPHEN 650 MG SUPP.RECT. PR PRN (09:00)
[2019-02-19] MEDS: ASPIRIN ENTERIC COATED 325 MG TABLET.DR. PO SCH (09:10)
[2019-02-19] MEDS: HYDROcodone/APAP 7.5/325MG 1 TAB TABLET PO PRN ×3 (09:10→20:55)
[2019-02-19] MEDS: ENOXAPARIN 40 MG/0.4 ML SYRINGE. SQ SCH (09:12)
--- NOTE | 2019-02-19 10:06 | PDOC2 ---
IQRA BYNUM MOVIE EDITOR 02/19/19 1006: CARDIAC CONSULT DATE OF CONSULT Date of Consult DATE: 02/19/19 TIME: 09:57 REASON FOR CONSULT Reason for Consult: Elevated BP, NSVT REFERRING PHYSICIAN Referring Physician: Fullbright SOURCE Source: Chart review, Patient HISTORY OF PRESENT ILLNESS HISTORY OF PRESENT ILLNESS This is a pleasant 69 yo female admitted for complains of visual problem and weakness to legs. Reports that she started having blurred vision and sometimes double vision the other day and also leg weakness. No facial droop, dysarthria. Denies any palpitations, SOA or chest pain. No recent nausea or vomiting, no chills, recent falls or injury. She is significant for past CVA and she thought that she is having another stroke. PAST MEDICAL HISTORY Past Medical History Cardiovascular: HTN, HLP. moderate proximal left subclavian artery stenosis Pulmonary: Bronchitis, Pneumonia CENTRAL NERVOUS SYSTEM: TIA, Other (intracranial aneurysm), CVA, right carotid stenosis GI: No pertinent hx Heme/Onc: Cancer (cervical), Iron deficiency Anemia Hepatobiliary: No pertinent hx Psych: Anxiety, Depression Musculoskeletal: Osteoarthritis Rheumatologic: No pertinent hx Infectious disease: No pertinent hx Renal/: No pertinent hx Endocrine: No pertinent hx PAST SURGICAL HISTORY Past Surgical History Cataract Removal, Hysterectomy FAMILY HISTORY Family History: Hypertension SOCIAL HISTORY Smoke: No ALCOHOL: none Drugs: None Lives: with Family CURRENT MEDICATIONS CURRENT MEDICATIONS Current Medications Medications (Trade) Dose Ordered Sig/Linus Route PRN Reason Start Time Stop Time Status Last Admin Dose Admin Sodium Chloride 1,000 ml @ 1,000 mls/hr 1X ONCE IV 02/18/19 21:30 02/18/19 22:29 DC 02/18/19 21:44 Ondansetron HCl (Zofran) 4 mg PRN Q8HRS PRN IV NAUSEA/VOMITING 1ST CHOICE 02/18/19 21:15 02/19/19 21:14 02/18/19 21:44 Aspirin (Felipe Aspirin) 325 mg 1X ONCE PO 02/18/19 22:00 02/18/19 22:01 DC 02/18/19 21:44 Labetalol HCl (Normodyne Iv Push) 10 mg 1X ONCE IVP 02/18/19 22:30 02/18/19 22:31 DC 02/18/19 22:47 Amlodipine Besylate (Norvasc) 10 mg 1X ONCE PO 02/18/19 22:30 02/18/19 22:31 DC 02/18/19 22:47 Amlodipine Besylate (Norvasc) 10 mg DAILY PO 02/19/19 09:00 02/19/19 08:05 Acetaminophen/ Hydrocodone Bitart (Lortab 7.5/325) 1 tab PRN Q6HRS PRN PO SEVERE PAIN 02/19/19 00:45 02/19/19 09:10 Metoprolol Tartrate (Lopressor) 25 mg BID PO 02/19/19 09:00 02/19/19 08:03 Tramadol HCl (Ultram) 50 mg PRN Q6HRS PRN PO PAIN MILD TO MOD 02/19/19 00:45 02/19/19 08:00 Enoxaparin Sodium (Lovenox 40mg Syringe) 40 mg Q24H SQ 02/19/19 09:00 02/19/19 09:12 Aspirin (Ecotrin) 325 mg DAILYWBKFT PO 02/19/19 09:00 02/19/19 09:10 ALLERGIES ALLERGIES: Coded Allergies: No Known Drug Allergies (Unverified , 09/21/15) ROS Review of System 14 point ROS evaluated with pertinent positives noted per HPI PHYSICAL EXAM General: Alert, Oriented X3, Cooperative, No acute distress HEENT: Atraumatic, Mucous membr. moist/pink Lungs: Clear to auscultation, Normal air movement Heart: Regular rate (SR), Normal S1, Normal S2, Other (2/6 systolic murmur to LLS border) Abdomen: Soft, No tenderness Extremities: No cyanosis, No edema Skin: No breakdown, No significant lesion Neuro: Normal speech, Sensation intact Psych/Mental Status: Mental status NL, Mood NL MUSCULOSKELETAL: Osteoarthritic changes both hands VITALS VITALS Vital Signs Date Time Temp Pulse Resp B/P (MAP) Pulse Ox O2 Delivery O2 Flow Rate FiO2 02/19/19 09:13 Nasal Cannula 2.0 02/19/19 08:05 91 166/68 (100) 02/19/19 08:00 92 02/19/19 07:00 99.1 22 99.1 LABS Lab: Laboratory Tests Test 02/18/19 21:15 02/18/19 23:12 02/19/19 00:30 02/19/19 03:00 White Blood Count 13.1 x10^3/uL (4.0-11.0) Red Blood Count 4.29 x10^6/uL (3.50-5.40) Hemoglobin 11.7 g/dL (12.0-15.5) Hematocrit 35.7 % (36.0-47.0) Mean Corpuscular Volume 83 fL (79-100) Mean Corpuscular Hemoglobin 27 pg (25-35) Mean Corpuscular Hemoglobin Concent 33 g/dL (31-37) Red Cell Distribution Width 14.3 % (11.5-14.5) Platelet Count 295 x10^3/uL (140-400) Neutrophils (%) (Auto) 84 % (31-73) Lymphocytes (%) (Auto) 8 % (24-48) Monocytes (%) (Auto) 7 % (0-9) Eosinophils (%) (Auto) 0 % (0-3) Basophils (%) (Auto) 1 % (0-3) Neutrophils # (Auto) 11.0 x10^3uL (1.8-7.7) Lymphocytes # (Auto) 1.1 x10^3/uL (1.0-4.8) Monocytes # (Auto) 0.9 x10^3/uL (0.0-1.1) Eosinophils # (Auto) 0.0 x10^3/uL (0.0-0.7) Basophils # (Auto) 0.1 x10^3/uL (0.0-0.2) Prothrombin Time 12.2 SEC (11.7-14.0) Prothromb Time International Ratio 0.9 (0.8-1.1) Activated Partial Thromboplast Time 35 SEC (24-38) Sodium Level 136 mmol/L (136-145) Potassium Level 3.8 mmol/L (3.5-5.1) Chloride Level 96 mmol/L (98-107) Carbon Dioxide Level 29 mmol/L (21-32) Anion Gap 11 (6-14) Blood Urea Nitrogen 8 mg/dL (7-20) Creatinine 1.1 mg/dL (0.6-1.0) Estimated GFR (Cockcroft-Gault) 59.2 BUN/Creatinine Ratio 7 (6-20) Glucose Level 129 mg/dL (70-99) Lactic Acid Level 0.8 mmol/L (0.4-2.0) Calcium Level 9.1 mg/dL (8.5-10.1) Magnesium Level 2.0 mg/dL (1.8-2.4) Total Bilirubin 0.2 mg/dL (0.2-1.0) Aspartate Amino Transf (AST/SGOT) 28 U/L (15-37) Alanine Aminotransferase (ALT/SGPT) 30 U/L (14-59) Alkaline Phosphatase 92 U/L (46-116) Creatine Kinase 58 U/L (26-192) Creatine Kinase MB (Mass) 0.5 ng/mL (0.0-3.6) Creatine Kinase MB Relative Index % (0-4) Troponin I Quantitative < 0.017 ng/mL (0.000-0.055) < 0.017 ng/mL (0.000-0.055) < 0.017 ng/mL (0.000-0.055) Total Protein 7.5 g/dL (6.4-8.2) Albumin 3.4 g/dL (3.4-5.0) Albumin/Globulin Ratio 0.8 (1.0-1.7) Lipase 54 U/L (73-393) Urine Collection Type Unknown Urine Color Yellow Urine Clarity Cloudy Urine pH 7.5 Urine Specific M[place] <=1.005 Urine Protein 30 mg/dL (NEG-TRACE) Urine Glucose (UA) Negative mg/dL (NEG) Urine Ketones (Stick) Negative mg/dL (NEG) Urine Blood Small (NEG) Urine Nitrite Positive (NEG) Urine Bilirubin Negative (NEG) Urine Urobilinogen Dipstick 0.2 mg/dL (0.2 mg/dL) Urine Leukocyte Esterase Large (NEG) Urine RBC Occ /HPF (0-2) Urine WBC >40 /HPF (0-4) Urine Squamous Epithelial Cells Mod /LPF Urine Transitional Epithelial Cells Occ /LPF Urine Renal Epithelial Cells Occ /LPF Urine Bacteria Many /HPF (0-FEW) Urine Mucus Slight /LPF IMAGES IMAGES CTA neck Impression: 1. 50% stenosis is seen involving the origin of the left subclavian artery. 2. Mild to moderate atheromatous/atherosclerotic plaque formation seen involving the carotid bifurcations and proximal internal carotid arteries. A 65% stenosis is seen involving the proximal right internal carotid artery near its origin. Aneurysmal dilatation of the right internal carotid artery at its origin is again seen, unchanged. A 50% stenosis is seen involving the origin of the left internal carotid artery. 3. 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 It reconstitutes within the superior neck via arterial collaterals. A 70% stenosis is seen involving the proximal left vertebral artery near its origin. 4. No intracranial stenosis or area of occlusion is seen. DICTATED and SIGNED BY: CHRISTINA VITALE MD DATE: 10/13/17 1337 ECHOCARDIOGRAM ECHOCARDIOGRAM <Conclusion> Left ventricle systolic function is normal. The Ejection Fraction is 55-60%. There is normal LV segmental wall motion. Transmitral Doppler flow pattern is Grade I-abnormal relaxation pattern. Mild mitral regurgitation. Trace tricuspid regurgitation. The PA pressure was estimated at 10 mmHg. There is no evidence of significant pericardial effusion. DATE: 10/15/17 1638 HEART CATH HEART CATH FINDINGS 1. Hemodynamics: Left ventricular end-diastolic pressure of 16 mmHg. No pullback gradient across the aortic valve. 2. Left ventriculography: Normal left ventricle systolic function with ejection fraction estimated at 60%. No significant mitral regurgitation seen. 3. Coronary angiography: a. The left main coronary artery arose from the left sinus of Valsalva, gave rise to the left anterior descending and left circumflex arteries and did not show any significant stenosis. b. The left anterior descending artery did not show any significant stenosis. c. The left circumflex artery was a large and dominant vessel that did not show any significant stenosis. d. The right coronary artery was a nondominant vessel arising from the right sinus of Valsalva that did not show any significant stenosis. Conclusion 1. No significant coronary artery disease 2. Normal left ventricular systolic function with ejection fraction estimated at 60% 3. No significant mitral regurgitation or aortic stenosis Recommendations Medical management DATE: 09/18/15 1012 ASSESSMENT/PLAN ASSESSMENT/PLAN 1. UTI/fever; per PCP 2. Metabolic encephalopathy vs CVA syndrome: neurology following 3. Accelerated HTN: labile 4. Arrhythmia: more of PSVT possibly PAFIB, no VT. 4. Hx of CVA/TIA with known bilateral carotid (with aneurysmal dilatation of YANN) and vertebral stenosis 5. Hx of myalgia with statin: tried 4-5 statins per pt. in the past Recommendations 1. Continues to refuse statin. Could try PCSK9 inhibitor as an outpt. 2. Restart home BP meds. Neurology workup pending. 3. ASA, statin 4. TTE pending. 5. MCOT as an outpt and note AFIB burden and note any need to transition to OAC. NAVARRO GUEVARA MD 02/19/19 1511: CARDIAC CONSULT ASSESSMENT/PLAN ASSESSMENT/PLAN Patient seen and examined. Agree with SWING RIDE OPERATOR's assessment and plan. Resume home antihypertensives and titrate for better blood pressure control Episode of arrhythmia on telemetry noted, most probably aberrantly conducted brief atrial fibrillation, doubt VT Plan for outpatient event monitor to assess arrhythmia burden Continue current workup for visual changes and leg weakness per neurology team Check 2-D echo to assess LV function and rule out structural abnormalities Thank you for your consultation IQRA BYNUM APRN Feb 19, 2019 10:06 NAVARRO GUEVARA MD Feb 19, 2019 15:11
--- NOTE | 2019-02-19 10:55 | NUR ---
Kyleigh Moya APRN gave verbal order to resume home medication
--- NOTE | 2019-02-19 12:12 | PDOC1 ---
History and Physical Date of Admission Date of Admission DATE: 02/19/19 TIME: 12:10 Source Source: Chart review, Patient History of Present Illness History of Present Illness "I was afraid I was having another stroke" last night, sudden blurry vision and leg weakness, to the ER, and her symptoms have improved noted cough recently, no pain, she feels she is having more trouble swallowing Past Medical History Cardiovascular: HTN Pulmonary: Bronchitis, Pneumonia CENTRAL NERVOUS SYSTEM: CVA, TIA, Other GI: No pertinent hx Heme/Onc: Cancer, Iron deficiency Anemia Hepatobiliary: No pertinent hx Psych: Anxiety, Depression Musculoskeletal: Osteoarthritis Rheumatologic: No pertinent hx Infectious disease: No pertinent hx Renal/: No pertinent hx Endocrine: No pertinent hx Past Surgical History Past Surgical History: Cataract Removal, Hysterectomy Family History Family History: Hypertension Social History Smoke: No ALCOHOL: none Drugs: None Current Problem List Problem List Problems Medical Problems: (1) Generalized weakness Status: Acute Current Medications Current Medications Current Medications Sodium Chloride 1,000 ml @ 1,000 mls/hr 1X ONCE IV Last administered on 02/18/19at 21:44; Start 02/18/19 at 21:30; Stop 02/18/19 at 22:29; Status DC Ondansetron HCl (Zofran) 4 mg PRN Q8HRS PRN IV NAUSEA/VOMITING 1ST CHOICE Last administered on 02/18/19at 21:44; Start 02/18/19 at 21:15; Stop 02/19/19 at 21:14 Aspirin (Felipe Aspirin) 325 mg 1X ONCE PO Last administered on 02/18/19at 21:44; Start 02/18/19 at 22:00; Stop 02/18/19 at 22:01; Status DC Labetalol HCl (Normodyne Iv Push) 10 mg 1X ONCE IVP Last administered on 02/18/19at 22:47; Start 02/18/19 at 22:30; Stop 02/18/19 at 22:31; Status DC Amlodipine Besylate (Norvasc) 10 mg 1X ONCE PO Last administered on 02/18/19at 22:47; Start 02/18/19 at 22:30; Stop 02/18/19 at 22:31; Status DC Amlodipine Besylate (Norvasc) 10 mg DAILY PO Last administered on 02/19/19at 08:05; Start 02/19/19 at 09:00 Acetaminophen/ Hydrocodone Bitart (Lortab 7.5/325) 1 tab PRN Q6HRS PRN PO SEVERE PAIN Last administered on 02/19/19at 09:10; Start 02/19/19 at 00:45 Metoprolol Tartrate (Lopressor) 25 mg BID PO Last administered on 02/19/19at 08:03; Start 02/19/19 at 09:00 Tramadol HCl (Ultram) 50 mg PRN Q6HRS PRN PO PAIN MILD TO MOD Last administered on 02/19/19at 08:00; Start 02/19/19 at 00:45 Atorvastatin Calcium (Lipitor) 10 mg QHS PO ; Start 02/19/19 at 21:00 Enoxaparin Sodium (Lovenox 40mg Syringe) 40 mg Q24H SQ Last administered on 02/19/19at 09:12; Start 02/19/19 at 09:00 Labetalol HCl (Normodyne Iv Push) 10 mg PRN Q10MIN PRN IVP HYPERTENSION, SEE COMMENTS; Start 02/19/19 at 09:00 Acetaminophen (Tylenol) 650 mg PRN Q6HRS PRN PO TEMP > 100.4F; Start 02/19/19 at 09:00 Acetaminophen (Tylenol Supp) 650 mg PRN Q4HRS PRN DC TEMP > 100.4F; Start 02/19/19 at 09:00 Aspirin (Ecotrin) 325 mg DAILYWBKFT PO Last administered on 02/19/19at 09:10; Start 02/19/19 at 09:00 Aspirin (Aspirin) 300 mg PRN DAILY PRN DC IF UNABLE TO TAKE PO; Start 02/19/19 at 09:00 Active Scripts Active Tramadol Hcl 50 Mg Tablet 50 Mg PO PRN Q6HRS PRN Simvastatin 20 Mg Tablet 1 Tab PO QHS Reported Metoprolol Tartrate 25 Mg Tablet 25 Mg PO BID Amlodipine Besylate 10 Mg Tablet 10 Mg PO BID Hydrocodone-Apap 7.5-325 (Hydrocodone Bit/Acetaminophen) 1 Each Tablet 7.5- 325 Mg PO Amitriptyline Hcl 75 Mg Tablet 75 Mg PO Allergies Allergies: Coded Allergies: No Known Drug Allergies (Unverified , 09/21/15) ROS General: No: Chills, Night Sweats, Fatigue, Malaise, Appetite, Other PSYCHOLOGICAL ROS: No: Anxiety, Behavioral Disorder, Concentration difficultie, Decreased libido, Depression, Disorientation, Hallucinations, Hostility, Irritablity, Memory difficulties, Mood Swings, Obsessive thoughts, Physical abuse, Sexual abuse, Sleep disturbances, Suicidal ideation, Other Eyes: No Blurry vision, No Decreased vision, No Double vision, No Dry eyes, No Excessive tearing, No Eye Pain, No Itchy Eyes, No Loss of vision, No Photophobia, No Scotomata, No Uses contacts, No Uses glasses, No Other HEENT: No: Heacaches, Visual Changes, Hearing change, Nasal congestion, Nasal discharge, Oral lesions, Sinus pain, Sore Throat, Epistaxis, Sneezing, Snoring, Tinnitus, Vertigo, Vocal changes, Other Respiratory: No: Cough, Hemoptysis, Orthopnea, Pleuritic Pain, Shortness of breath, SOB with excertion, Sputum Changes, Stridor, Tachypnea, Wheezing, Other Cardiovascular: No Chest Pain, No Palpitations, No Orthopnea, No Paroxysmal Noc. Dyspnea, No Edema, No Lt Headedness, No Other Gastrointestinal: Yes Nausea; No Vomiting, No Abdominal Pain, No Diarrhea, No Constipation, No Melena, No Hematochezia, No Other Genitourinary: YES Dysuria Musculoskeletal: Yes Joint Pain Neurological: Yes Gait Disturbance Physical Exam General: Alert, Cooperative, mild distress HEENT: Atraumatic, PERRLA Lungs: Clear to auscultation, Normal air movement Heart: S1S2, RRR Abdomen: Normal bowel sounds, Soft Extremities: No cyanosis, No edema Skin: No breakdown, No significant lesion Neuro: Normal speech, Sensation intact Psych/Mental Status: Mood NL Vitals Vitals Vital Signs Date Time Temp Pulse Resp B/P (MAP) Pulse Ox O2 Delivery O2 Flow Rate FiO2 02/19/19 11:00 99.1 82 20 132/60 (84) 92 Nasal Cannula 2.0 99.1 Labs Labs Laboratory Tests Test 02/18/19 21:15 02/18/19 23:12 02/19/19 00:30 02/19/19 03:00 White Blood Count 13.1 x10^3/uL (4.0-11.0) Red Blood Count 4.29 x10^6/uL (3.50-5.40) Hemoglobin 11.7 g/dL (12.0-15.5) Hematocrit 35.7 % (36.0-47.0) Mean Corpuscular Volume 83 fL (79-100) Mean Corpuscular Hemoglobin 27 pg (25-35) Mean Corpuscular Hemoglobin Concent 33 g/dL (31-37) Red Cell Distribution Width 14.3 % (11.5-14.5) Platelet Count 295 x10^3/uL (140-400) Neutrophils (%) (Auto) 84 % (31-73) Lymphocytes (%) (Auto) 8 % (24-48) Monocytes (%) (Auto) 7 % (0-9) Eosinophils (%) (Auto) 0 % (0-3) Basophils (%) (Auto) 1 % (0-3) Neutrophils # (Auto) 11.0 x10^3uL (1.8-7.7) Lymphocytes # (Auto) 1.1 x10^3/uL (1.0-4.8) Monocytes # (Auto) 0.9 x10^3/uL (0.0-1.1) Eosinophils # (Auto) 0.0 x10^3/uL (0.0-0.7) Basophils # (Auto) 0.1 x10^3/uL (0.0-0.2) Prothrombin Time 12.2 SEC (11.7-14.0) Prothromb Time International Ratio 0.9 (0.8-1.1) Activated Partial Thromboplast Time 35 SEC (24-38) Sodium Level 136 mmol/L (136-145) Potassium Level 3.8 mmol/L (3.5-5.1) Chloride Level 96 mmol/L (98-107) Carbon Dioxide Level 29 mmol/L (21-32) Anion Gap 11 (6-14) Blood Urea Nitrogen 8 mg/dL (7-20) Creatinine 1.1 mg/dL (0.6-1.0) Estimated GFR (Cockcroft-Gault) 59.2 BUN/Creatinine Ratio 7 (6-20) Glucose Level 129 mg/dL (70-99) Lactic Acid Level 0.8 mmol/L (0.4-2.0) Calcium Level 9.1 mg/dL (8.5-10.1) Magnesium Level 2.0 mg/dL (1.8-2.4) Total Bilirubin 0.2 mg/dL (0.2-1.0) Aspartate Amino Transf (AST/SGOT) 28 U/L (15-37) Alanine Aminotransferase (ALT/SGPT) 30 U/L (14-59) Alkaline Phosphatase 92 U/L (46-116) Creatine Kinase 58 U/L (26-192) Creatine Kinase MB (Mass) 0.5 ng/mL (0.0-3.6) Creatine Kinase MB Relative Index % (0-4) Troponin I Quantitative < 0.017 ng/mL (0.000-0.055) < 0.017 ng/mL (0.000-0.055) < 0.017 ng/mL (0.000-0.055) Total Protein 7.5 g/dL (6.4-8.2) Albumin 3.4 g/dL (3.4-5.0) Albumin/Globulin Ratio 0.8 (1.0-1.7) Lipase 54 U/L (73-393) Urine Collection Type Unknown Urine Color Yellow Urine Clarity Cloudy Urine pH 7.5 Urine Specific [place] <=1.005 Urine Protein 30 mg/dL (NEG-TRACE) Urine Glucose (UA) Negative mg/dL (NEG) Urine Ketones (Stick) Negative mg/dL (NEG) Urine Blood Small (NEG) Urine Nitrite Positive (NEG) Urine Bilirubin Negative (NEG) Urine Urobilinogen Dipstick 0.2 mg/dL (0.2 mg/dL) Urine Leukocyte Esterase Large (NEG) Urine RBC Occ /HPF (0-2) Urine WBC >40 /HPF (0-4) Urine Squamous Epithelial Cells Mod /LPF Urine Transitional Epithelial Cells Occ /LPF Urine Renal Epithelial Cells Occ /LPF Urine Bacteria Many /HPF (0-FEW) Urine Mucus Slight /LPF Laboratory Tests Test 02/18/19 21:15 02/18/19 23:12 02/19/19 00:30 02/19/19 03:00 White Blood Count 13.1 x10^3/uL (4.0-11.0) Red Blood Count 4.29 x10^6/uL (3.50-5.40) Hemoglobin 11.7 g/dL (12.0-15.5) Hematocrit 35.7 % (36.0-47.0) Mean Corpuscular Volume 83 fL (79-100) Mean Corpuscular Hemoglobin 27 pg (25-35) Mean Corpuscular Hemoglobin Concent 33 g/dL (31-37) Red Cell Distribution Width 14.3 % (11.5-14.5) Platelet Count 295 x10^3/uL (140-400) Neutrophils (%) (Auto) 84 % (31-73) Lymphocytes (%) (Auto) 8 % (24-48) Monocytes (%) (Auto) 7 % (0-9) Eosinophils (%) (Auto) 0 % (0-3) Basophils (%) (Auto) 1 % (0-3) Neutrophils # (Auto) 11.0 x10^3uL (1.8-7.7) Lymphocytes # (Auto) 1.1 x10^3/uL (1.0-4.8) Monocytes # (Auto) 0.9 x10^3/uL (0.0-1.1) Eosinophils # (Auto) 0.0 x10^3/uL (0.0-0.7) Basophils # (Auto) 0.1 x10^3/uL (0.0-0.2) Prothrombin Time 12.2 SEC (11.7-14.0) Prothromb Time International Ratio 0.9 (0.8-1.1) Activated Partial Thromboplast Time 35 SEC (24-38) Sodium Level 136 mmol/L (136-145) Potassium Level 3.8 mmol/L (3.5-5.1) Chloride Level 96 mmol/L (98-107) Carbon Dioxide Level 29 mmol/L (21-32) Anion Gap 11 (6-14) Blood Urea Nitrogen 8 mg/dL (7-20) Creatinine 1.1 mg/dL (0.6-1.0) Estimated GFR (Cockcroft-Gault) 59.2 BUN/Creatinine Ratio 7 (6-20) Glucose Level 129 mg/dL (70-99) Lactic Acid Level 0.8 mmol/L (0.4-2.0) Calcium Level 9.1 mg/dL (8.5-10.1) Magnesium Level 2.0 mg/dL (1.8-2.4) Total Bilirubin 0.2 mg/dL (0.2-1.0) Aspartate Amino Transf (AST/SGOT) 28 U/L (15-37) Alanine Aminotransferase (ALT/SGPT) 30 U/L (14-59) Alkaline Phosphatase 92 U/L (46-116) Creatine Kinase 58 U/L (26-192) Creatine Kinase MB (Mass) 0.5 ng/mL (0.0-3.6) Creatine Kinase MB Relative Index % (0-4) Troponin I Quantitative < 0.017 ng/mL (0.000-0.055) < 0.017 ng/mL (0.000-0.055) < 0.017 ng/mL (0.000-0.055) Total Protein 7.5 g/dL (6.4-8.2) Albumin 3.4 g/dL (3.4-5.0) Albumin/Globulin Ratio 0.8 (1.0-1.7) Lipase 54 U/L (73-393) Urine Collection Type Unknown Urine Color Yellow Urine Clarity Cloudy Urine pH 7.5 Urine Specific [place] <=1.005 Urine Protein 30 mg/dL (NEG-TRACE) Urine Glucose (UA) Negative mg/dL (NEG) Urine Ketones (Stick) Negative mg/dL (NEG) Urine Blood Small (NEG) Urine Nitrite Positive (NEG) Urine Bilirubin Negative (NEG) Urine Urobilinogen Dipstick 0.2 mg/dL (0.2 mg/dL) Urine Leukocyte Esterase Large (NEG) Urine RBC Occ /HPF (0-2) Urine WBC >40 /HPF (0-4) Urine Squamous Epithelial Cells Mod /LPF Urine Transitional Epithelial Cells Occ /LPF Urine Renal Epithelial Cells Occ /LPF Urine Bacteria Many /HPF (0-FEW) Urine Mucus Slight /LPF VTE Prophylaxis Ordered VTE Prophylaxis Devices: Yes VTE Pharmacological Prophylaxi: Yes Assessment/Plan Assessment/Plan TIA, hx CVA, r/o acute dysphagia leg weakness blurry vision htn, chronic diastolic CHF, [place] WRAY MD Feb 19, 2019 12:12
--- NOTE | 2019-02-19 12:25 | PDOC2 ---
NEUROLOGY CONSULT Date of Admission Date of Admission DATE: 02/19/19 TIME: 12:18 Reason for Consult Reason for Consult: Possible new stroke Referring Physician Referring Physician: Dr. Morales Source Source: Chart review, Patient History of Present Illness History of Present Illness The patient is a 69-year-old right-handed female who was worried that she was having another stroke. She had bilateral blurred vision and bilateral leg weakness. There was no pain involved. I last saw her in September 2017 when she presented with symptoms and signs of brainstem stroke with left medial rectus palsy and ataxia along with left-sided numbness, but brain MRI was negative. 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 She has a history of intracranial aneurysm but is able to have brain MRIs. 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 At that time I also wondered about a nonorganic overlay. Patient is feeling better today. The patient did go to inpatient rehab after the last episode in September 2017. Past Medical History Cardiovascular: HTN Pulmonary: Bronchitis, Pneumonia CENTRAL NERVOUS SYSTEM: TIA, Other (Intracranial aneurysm, cavernous hemangioma) Heme/Onc: Cancer ( cervical), Iron deficiency Anemia Psych: Anxiety, Depression Musculoskeletal: Osteoarthritis Past Surgical History Past Surgical History: Cataract Removal, Hysterectomy Family History Family History: Cancer Social History Social History , ex smoker, rare alcohol, retired Current Medications Current Medications Current Medications Sodium Chloride 1,000 ml @ 1,000 mls/hr 1X ONCE IV Last administered on 02/18/19at 21:44; Start 02/18/19 at 21:30; Stop 02/18/19 at 22:29; Status DC Ondansetron HCl (Zofran) 4 mg PRN Q8HRS PRN IV NAUSEA/VOMITING 1ST CHOICE Last administered on 02/18/19at 21:44; Start 02/18/19 at 21:15; Stop 02/19/19 at 21:14 Aspirin (Felipe Aspirin) 325 mg 1X ONCE PO Last administered on 02/18/19at 21:44; Start 02/18/19 at 22:00; Stop 02/18/19 at 22:01; Status DC Labetalol HCl (Normodyne Iv Push) 10 mg 1X ONCE IVP Last administered on 02/18/19at 22:47; Start 02/18/19 at 22:30; Stop 02/18/19 at 22:31; Status DC Amlodipine Besylate (Norvasc) 10 mg 1X ONCE PO Last administered on 02/18/19at 22:47; Start 02/18/19 at 22:30; Stop 02/18/19 at 22:31; Status DC Amlodipine Besylate (Norvasc) 10 mg DAILY PO Last administered on 02/19/19at 08:05; Start 02/19/19 at 09:00 Acetaminophen/ Hydrocodone Bitart (Lortab 7.5/325) 1 tab PRN Q6HRS PRN PO SEVERE PAIN Last administered on 02/19/19 09:10; Start 02/19/19 at 00:45 Metoprolol Tartrate (Lopressor) 25 mg BID PO Last administered on 02/19/19at 08:03; Start 02/19/19 at 09:00 Tramadol HCl (Ultram) 50 mg PRN Q6HRS PRN PO PAIN MILD TO MOD Last administered on 02/19/19at 08:00; Start 02/19/19 at 00:45 Atorvastatin Calcium (Lipitor) 10 mg QHS PO ; Start 02/19/19 at 21:00 Enoxaparin Sodium (Lovenox 40mg Syringe) 40 mg Q24H SQ Last administered on 02/19/19at 09:12; Start 02/19/19 at 09:00 Labetalol HCl (Normodyne Iv Push) 10 mg PRN Q10MIN PRN IVP HYPERTENSION, SEE COMMENTS; Start 02/19/19 at 09:00 Acetaminophen (Tylenol) 650 mg PRN Q6HRS PRN PO TEMP > 100.4F; Start 02/19/19 at 09:00 Acetaminophen (Tylenol Supp) 650 mg PRN Q4HRS PRN NM TEMP > 100.4F; Start 02/19/19 at 09:00 Aspirin (Ecotrin) 325 mg DAILYWBKFT PO Last administered on 02/19/19at 09:10; Start 02/19/19 at 09:00 Aspirin (Aspirin) 300 mg PRN DAILY PRN NM IF UNABLE TO TAKE PO; Start 02/19/19 at 09:00 Active Scripts Active Tramadol Hcl 50 Mg Tablet 50 Mg PO PRN Q6HRS PRN Simvastatin 20 Mg Tablet 1 Tab PO QHS Reported Metoprolol Tartrate 25 Mg Tablet 25 Mg PO BID Amlodipine Besylate 10 Mg Tablet 10 Mg PO BID Hydrocodone-Apap 7.5-325 (Hydrocodone Bit/Acetaminophen) 1 Each Tablet 7.5- 325 Mg PO Amitriptyline Hcl 75 Mg Tablet 75 Mg PO Allergies Allergies: Coded Allergies: No Known Drug Allergies (Unverified , 09/21/15) ROS Review of System Negative for fever, chills, weight loss, shortness of breath, chest pain, indigestion, hematochezia, melena, and dysuria. Full 14-point review of systems is negative. Physical Exam Physical Examination General: Well-developed, well-nourished black female in no acute distress HEENT: Normocephalic andatraumatic.Temporal arteriespulsatile and nontender. Neck: Supple without bruit, no meningismus Musculoskeletal: Stability:see neurologic. Gait exam:see neurologic. Tone:see neurologic.Strength:see neurologic. Neurological: Mental Status:intact, orientation, memory, attention span/concentration, language, fund of knowledge normal. Cranial Nerves:Pupils equal and reactive to light, extraocular movements areintact, visual devlin are full to confrontation. Facial sensation is normal. There is no facial asymmetry. Vestibulo-ocular reflex is intact. Palate elevates and tongue protrudes in midline. All other cranial related problems are negative except as mentioned before.Reflexes:2+ and symmetric with flexor plantar responses. Motor:4/5 strength with normal tone and bulk. Coordination:Finger-nose finger and [id number] testing are normal. Rapid alternating movements and fine finger movements are intact. Gait:Normal, poor tandem. Sensory:Normal pinprick, vibration, light touch, proprioception. Vitals VITALS Vital Signs Date Time Temp Pulse Resp B/P (MAP) Pulse Ox O2 Delivery O2 Flow Rate FiO2 02/19/19 11:00 99.1 82 20 132/60 (84) 92 Nasal Cannula 2.0 99.1 Labs Labs Laboratory Tests Test 02/18/19 21:15 02/18/19 23:12 02/19/19 00:30 02/19/19 03:00 White Blood Count 13.1 x10^3/uL (4.0-11.0) Red Blood Count 4.29 x10^6/uL (3.50-5.40) Hemoglobin 11.7 g/dL (12.0-15.5) Hematocrit 35.7 % (36.0-47.0) Mean Corpuscular Volume 83 fL (79-100) Mean Corpuscular Hemoglobin 27 pg (25-35) Mean Corpuscular Hemoglobin Concent 33 g/dL (31-37) Red Cell Distribution Width 14.3 % (11.5-14.5) Platelet Count 295 x10^3/uL (140-400) Neutrophils (%) (Auto) 84 % (31-73) Lymphocytes (%) (Auto) 8 % (24-48) Monocytes (%) (Auto) 7 % (0-9) Eosinophils (%) (Auto) 0 % (0-3) Basophils (%) (Auto) 1 % (0-3) Neutrophils # (Auto) 11.0 x10^3uL (1.8-7.7) Lymphocytes # (Auto) 1.1 x10^3/uL (1.0-4.8) Monocytes # (Auto) 0.9 x10^3/uL (0.0-1.1) Eosinophils # (Auto) 0.0 x10^3/uL (0.0-0.7) Basophils # (Auto) 0.1 x10^3/uL (0.0-0.2) Prothrombin Time 12.2 SEC (11.7-14.0) Prothromb Time International Ratio 0.9 (0.8-1.1) Activated Partial Thromboplast Time 35 SEC (24-38) Sodium Level 136 mmol/L (136-145) Potassium Level 3.8 mmol/L (3.5-5.1) Chloride Level 96 mmol/L (98-107) Carbon Dioxide Level 29 mmol/L (21-32) Anion Gap 11 (6-14) Blood Urea Nitrogen 8 mg/dL (7-20) Creatinine 1.1 mg/dL (0.6-1.0) Estimated GFR (Cockcroft-Gault) 59.2 BUN/Creatinine Ratio 7 (6-20) Glucose Level 129 mg/dL (70-99) Lactic Acid Level 0.8 mmol/L (0.4-2.0) Calcium Level 9.1 mg/dL (8.5-10.1) Magnesium Level 2.0 mg/dL (1.8-2.4) Total Bilirubin 0.2 mg/dL (0.2-1.0) Aspartate Amino Transf (AST/SGOT) 28 U/L (15-37) Alanine Aminotransferase (ALT/SGPT) 30 U/L (14-59) Alkaline Phosphatase 92 U/L (46-116) Creatine Kinase 58 U/L (26-192) Creatine Kinase MB (Mass) 0.5 ng/mL (0.0-3.6) Creatine Kinase MB Relative Index % (0-4) Troponin I Quantitative < 0.017 ng/mL (0.000-0.055) < 0.017 ng/mL (0.000-0.055) < 0.017 ng/mL (0.000-0.055) Total Protein 7.5 g/dL (6.4-8.2) Albumin 3.4 g/dL (3.4-5.0) Albumin/Globulin Ratio 0.8 (1.0-1.7) Lipase 54 U/L (73-393) Urine Collection Type Unknown Urine Color Yellow Urine Clarity Cloudy Urine pH 7.5 Urine Specific [place] <=1.005 Urine Protein 30 mg/dL (NEG-TRACE) Urine Glucose (UA) Negative mg/dL (NEG) Urine Ketones (Stick) Negative mg/dL (NEG) Urine Blood Small (NEG) Urine Nitrite Positive (NEG) Urine Bilirubin Negative (NEG) Urine Urobilinogen Dipstick 0.2 mg/dL (0.2 mg/dL) Urine Leukocyte Esterase Large (NEG) Urine RBC Occ /HPF (0-2) Urine WBC >40 /HPF (0-4) Urine Squamous Epithelial Cells Mod /LPF Urine Transitional Epithelial Cells Occ /LPF Urine Renal Epithelial Cells Occ /LPF Urine Bacteria Many /HPF (0-FEW) Urine Mucus Slight /LPF Laboratory Tests Test 02/18/19 21:15 02/18/19 23:12 02/19/19 00:30 02/19/19 03:00 White Blood Count 13.1 x10^3/uL (4.0-11.0) Red Blood Count 4.29 x10^6/uL (3.50-5.40) Hemoglobin 11.7 g/dL (12.0-15.5) Hematocrit 35.7 % (36.0-47.0) Mean Corpuscular Volume 83 fL (79-100) Mean Corpuscular Hemoglobin 27 pg (25-35) Mean Corpuscular Hemoglobin Concent 33 g/dL (31-37) Red Cell Distribution Width 14.3 % (11.5-14.5) Platelet Count 295 x10^3/uL (140-400) Neutrophils (%) (Auto) 84 % (31-73) Lymphocytes (%) (Auto) 8 % (24-48) Monocytes (%) (Auto) 7 % (0-9) Eosinophils (%) (Auto) 0 % (0-3) Basophils (%) (Auto) 1 % (0-3) Neutrophils # (Auto) 11.0 x10^3uL (1.8-7.7) Lymphocytes # (Auto) 1.1 x10^3/uL (1.0-4.8) Monocytes # (Auto) 0.9 x10^3/uL (0.0-1.1) Eosinophils # (Auto) 0.0 x10^3/uL (0.0-0.7) Basophils # (Auto) 0.1 x10^3/uL (0.0-0.2) Prothrombin Time 12.2 SEC (11.7-14.0) Prothromb Time International Ratio 0.9 (0.8-1.1) Activated Partial Thromboplast Time 35 SEC (24-38) Sodium Level 136 mmol/L (136-145) Potassium Level 3.8 mmol/L (3.5-5.1) Chloride Level 96 mmol/L (98-107) Carbon Dioxide Level 29 mmol/L (21-32) Anion Gap 11 (6-14) Blood Urea Nitrogen 8 mg/dL (7-20) Creatinine 1.1 mg/dL (0.6-1.0) Estimated GFR (Cockcroft-Gault) 59.2 BUN/Creatinine Ratio 7 (6-20) Glucose Level 129 mg/dL (70-99) Lactic Acid Level 0.8 mmol/L (0.4-2.0) Calcium Level 9.1 mg/dL (8.5-10.1) Magnesium Level 2.0 mg/dL (1.8-2.4) Total Bilirubin 0.2 mg/dL (0.2-1.0) Aspartate Amino Transf (AST/SGOT) 28 U/L (15-37) Alanine Aminotransferase (ALT/SGPT) 30 U/L (14-59) Alkaline Phosphatase 92 U/L (46-116) Creatine Kinase 58 U/L (26-192) Creatine Kinase MB (Mass) 0.5 ng/mL (0.0-3.6) Creatine Kinase MB Relative Index % (0-4) Troponin I Quantitative < 0.017 ng/mL (0.000-0.055) < 0.017 ng/mL (0.000-0.055) < 0.017 ng/mL (0.000-0.055) Total Protein 7.5 g/dL (6.4-8.2) Albumin 3.4 g/dL (3.4-5.0) Albumin/Globulin Ratio 0.8 (1.0-1.7) Lipase 54 U/L (73-393) Urine Collection Type Unknown Urine Color Yellow Urine Clarity Cloudy Urine pH 7.5 Urine Specific [place] <=1.005 Urine Protein 30 mg/dL (NEG-TRACE) Urine Glucose (UA) Negative mg/dL (NEG) Urine Ketones (Stick) Negative mg/dL (NEG) Urine Blood Small (NEG) Urine Nitrite Positive (NEG) Urine Bilirubin Negative (NEG) Urine Urobilinogen Dipstick 0.2 mg/dL (0.2 mg/dL) Urine Leukocyte Esterase Large (NEG) Urine RBC Occ /HPF (0-2) Urine WBC >40 /HPF (0-4) Urine Squamous Epithelial Cells Mod /LPF Urine Transitional Epithelial Cells Occ /LPF Urine Renal Epithelial Cells Occ /LPF Urine Bacteria Many /HPF (0-FEW) Urine Mucus Slight /LPF Images Images CT HEAD WO CONTRAST There is some density within the left zully, unchanged since prior study, presumably calcification. No evidence of acute intracranial hemorrhage, mass effect, midline shift or abnormal extra-axial fluid collection. Ventricles and sulci are within normal limits. No evidence of acute skull abnormality. The partially visualized sinuses are clear. There are some surgical type changes at the right frontal bone. No evidence of significant scalp swelling. The partially seen orbits appear symmetric. IMPRESSION: No evidence of acute infarct cranial hemorrhage or mass effect. Assessment/Plan Assessment/Plan Impression: These are bilateral symptoms of visual changes and leg weakness, unlikely to be related to cerebrovascular disease. The last admission for possible stroke I wondered about nonorganic overlay then Prior clinical brainstem stroke with negative imaging Brainstem cavernous hemangioma Intracranial aneurysm, carotid artery Anxiety and depression Recommendations: MRI of the brain Carotid Doppler studies Echocardiogram Continue aspirin Rehabilitation modalities Thank you for letting me help with the patient's care. JALYN VAZQUEZ MD Feb 19, 2019 12:25
--- NOTE | 2019-02-19 12:52 | RAD ---
MRI Brain without contrast History: Weakness, headache Technique: Multiplanar, multisequential noncontrast MR imaging was performed of the brain. Comparison: October 13, 2017 Findings: There is no restricted diffusion suggestive of recent infarct. There is no new midline shift, extra-axial fluid collection, intra-axial mass effect. There is again decreased signal on T2 and gradient echo sequences involving the left zully and midbrain not associated with new edema. There are again a few small foci of T2 and FLAIR hyperintense signal of the supratentorial white matter, not significantly changed. There is again [id number]-[id number] generalized supratentorial atrophy. There has been lens surgery bilaterally in the interval. There is mild thickening of the mastoid air cells bilaterally. There is preservation of the major arterial flow voids at the skull base. There is patchy negligible ethmoid air cell mucosal thickening. There is some deviation of the nasal septum to the right. Frontal sinus is not significantly pneumatized. Cerebellar tonsils are normal in location. There is preserved marrow signal clivus. There is no new abnormality of the pineal gland or pituitary gland. There is degenerative disc disease of the visualized C4-5 level. Impression: 1. Intracranial findings are similar compared with the 2017 exam. There is again signal abnormality of the left zully and midbrain likely related to underlying cavernous malformation, no new associated edema. There is again very mild T2 and FLAIR hyperintense signal of the supratentorial parenchyma which may be due to foci of nonspecific gliosis. There is again generalized supratentorial atrophy. Electronically signed by: Evan Ambrocio MD (02/19/2019 12:49 PM) [facility]
--- NOTE | 2019-02-19 17:25 | CARD ---
MR#: [id number] Date of Study: 02/19/2019 Ordering Physician: MIRACLE PEREZ, Referring Physician: MIRACLE PEREZ, Tech: Karla Penn APPROVED REPORT EXAM: Two-dimensional and M-mode echocardiogram with Doppler and color Doppler. Other Information Quality : AverageHR: 80bpm INDICATION Superventricular Tachycardia RISK FACTORS Hypertension Hyperlipidemia Previous smoker 2D DIMENSIONS RVDd2.6 (2.9-3.5cm)Left Atrium(2D)3.7 (1.6-4.0cm) IVSd1.3 (0.7-1.1cm)Aortic Root(2D)2.8 (2.0-3.7cm) LVDd5.1 (3.9-5.9cm)LVOT Diameter2.0 (1.8-2.4cm) PWd1.0 (0.7-1.1cm)LVDs3.0 (2.5-4.0cm) FS (%) 41.3 %SV88.1 ml Aortic Valve AoV Peak Juan Carlos.145.8cm/sAoV VTI25.2cm AO Peak GR.8.5mmHgLVOT Peak Juan Carlos.90.4cm/s LVOT VTI 21.35cmAO Mean GR.5mmHg ESTHER (VMAX)1.85gg5IXO (VTI)2.57cm2 Mitral Valve MV E Dbjvuawi479.9cm/sMV DECEL QKTD243ar MV A Lqiduyic534.9cm/sMV QGW31rk E/A Ratio0.7MVA (PHT)3.52cm2 TDI E/Lateral E'20.7E/Medial E'13.9 Pulmonary Valve PV Peak Xfxrdftu552.7cm/sPV Peak Grad.4mmHg Tricuspid Valve TR P. Scschimu263aj/sRAP QUPRDLJY3mcWf TR Peak Gr.53wdPdJBZS02iaCe Pulmonary Vein S1 Sitbehdi30.6cm/sD2 Vktrjhnw51.7cm/s PVa [id number] LEFT VENTRICLE The left ventricle is normal size. There is mild concentric left ventricular hypertrophy. The left ve ntricular systolic function is normal and the ejection fraction is within normal range. The Ejection Fraction is 55-60%. There is normal LV segmental wall motion. Transmitral Doppler flow pattern is Gra [place]-abnormal relaxation pattern. RIGHT VENTRICLE The right ventricle is normal size. There is normal right ventricular wall thickness. The right ventr icular systolic function is normal. ATRIA The left atrium size is normal. The right atrium size is normal. The interatrial septum is intact wit h no evidence for an atrial septal defect or patent foramen ovale as noted on 2-D or Doppler imaging. AORTIC VALVE The aortic valve is thickened but opens well. Doppler and Color Flow revealed no significant aortic r egurgitation. There is no significant aortic valvular stenosis. MITRAL VALVE The mitral valve is normal in structure and function. Mitral annular calcification is mild to moderat e. There is no evidence of mitral valve prolapse. There is no mitral valve stenosis. Doppler and [place] r Flow revealed trace mitral valve regurgitation. TRICUSPID VALVE The tricuspid valve is normal in structure and function. Doppler and Color Flow revealed trace tricus pid regurgitation with an estimated PAP of 38 mmHg. There is no tricuspid valve stenosis. PULMONIC VALVE The pulmonic valve is not well visualized. Doppler and Color Flow revealed no pulmonic valvular regur gitation. GREAT VESSELS The aortic root is normal in size. The IVC is normal in size and collapses >50% with inspiration. PERICARDIAL EFFUSION There is no evidence of significant pericardial effusion. Critical Notification Critical Value: No <Conclusion> The left ventricle is normal size. The left ventricular systolic function is normal and the ejection fraction is within normal range. The Ejection Fraction is 55-60%. There is mild concentric left ventricular hypertrophy. There is no significant aortic valvular stenosis. Doppler and Color Flow revealed no significant aortic regurgitation. Doppler and Color Flow revealed trace mitral valve regurgitation. Doppler and Color Flow revealed trace tricuspid regurgitation with an estimated PAP of 38 mmHg. Signed by : Constantino Mendiola MD Electronically Approved : 02/19/2019 17:24:59
[2019-02-19] MEDS: ACETAMINOPHEN 325 MG TABLET. PO PRN (20:19)
[2019-02-19] MEDS: AMITRIPTYLINE HCL 25 MG TABLET. PO SCH (20:55)
[2019-02-19] MEDS: SIMVASTATIN 20 MG TABLET PO SCH (20:55)
[2019-02-19] MEDS: amLODIPine BESYLATE 10 MG TABLET PO SCH (20:58)
[2019-02-19] MEDS ORDERED: ATORVASTATIN CALCIUM 10 MG TABLET. PO SCH (21:00)
[2019-02-19] MEDS: guaiFENesin/CODEINE 100mg/10mg 5 ML LIQUID PO PRN (22:22)
[2019-02-19] MEDS: IPRATRPIUM/ALBUTEROL 0.5/2.5MG 3 ML NEBU. NEB SCH (22:38)
[2019-02-20] VITALS (7 sets, daily range): BP systolic 119–213; BP diastolic 41–75
--- NOTE | 2019-02-20 04:19 | RAD ---
DOPPLER CAROTID BILAT Clinical Indication: CVA. Procedure: Pulsed wave and color-flow duplex imaging was utilized to evaluate the extracranial carotid arteries. Comparison: None. Findings: RIGHT SIDE: Moderate atherosclerotic plaque on arteaga-scale images. Distal CCA peak systolic velocity 123 cm/sec. ICA peak systolic velocity 201 cm/sec. The right ICA/CCA ratio is 1.6. Flow within the right vertebral artery and right ECA is directed antegrade. LEFT SIDE: Moderate atherosclerotic plaque on arteaga-scale images. Distal CCA peak systolic velocity 120 cm/sec. ICA peak systolic velocity 197 cm/sec. The left ICA/CCA ratio is 1.6. Elevated velocity in the ECA measuring 213 cm/s. Flow within the left vertebral artery and left ECA is directed antegrade. Carotid legend: CCA = common carotid artery ICA = internal carotid artery ECA = external carotid artery IMPRESSION: 1. 50-69 percent stenosis in the right ICA and left ICA. 2. Moderate stenosis in the left ECA. 3. Low velocity flow in the right vertebral artery. Electronically signed by: Michelet Villa DO (02/20/2019 4:16 AM) [facility]
[2019-02-20 05:31] LABS: CHOLESTEROL/HDL RATIO 9.5
[2019-02-20] MEDS: IPRATRPIUM/ALBUTEROL 0.5/2.5MG 3 ML NEBU. NEB SCH ×4 (06:20→21:13)
[2019-02-20] MEDS: ASPIRIN ENTERIC COATED 325 MG TABLET.DR. PO SCH (08:32)
[2019-02-20] MEDS: HYDROcodone/APAP 7.5/325MG 1 TAB TABLET PO PRN ×2 (08:32→14:51)
[2019-02-20] MEDS: ACETAMINOPHEN 325 MG TABLET. PO PRN ×2 (08:33→20:06)
[2019-02-20] MEDS: amLODIPine BESYLATE 10 MG TABLET PO SCH (08:33)
[2019-02-20] MEDS: METOPROLOL TART IMMED RELEASE 25 MG TABLET. PO SCH ×2 (08:33→20:07)
[2019-02-20] MEDS: ENOXAPARIN 40 MG/0.4 ML SYRINGE. SQ SCH (09:41)
--- NOTE | 2019-02-20 10:13 | NUR ---
SW consulted for dc needs. Chart reviewed and AL RN. Pt lives at home with family. PT/OT pending. SW will await for PT/OT recommendation to assess skilled needs. Will continue to follow.
[2019-02-20] MEDS: traMADol 50 MG TABLET PO PRN ×2 (11:41→20:07)
--- NOTE | 2019-02-20 11:43 | PDOC ---
PROGRESS NOTES Chief Complaint Chief Complaint TIA Hx CVA, r/o acute UTI dysphagia leg weakness blurry vision htn, chronic diastolic CHF History of Present Illness History of Present Illness Patient seen and examined. Pt appears to be in moderate pain. Discussed with nurse. Patient complains of urinary symptoms and associated back pain. Vitals Vitals Vital Signs Date Time Temp Pulse Resp B/P (MAP) Pulse Ox O2 Delivery O2 Flow Rate FiO2 02/20/19 10:57 98.2 80 18 150/57 (88) 97 Nasal Cannula 2.0 98.2 Physical Exam General: Alert, Oriented X3, Cooperative, mild distress (Pt complains of low back pain) Heart: Regular rate (SR), Normal S1, Normal S2, Other (2/6 systolic murmur to LLS border) Lungs: Clear Abdomen: Soft, No tenderness Extremities: No cyanosis, No edema Skin: No breakdown, No significant lesion Review of Systems Review of Systems Complains of Flank pain Complains of dysuria Assessment and Plan Assessmemt and Plan Problems Medical Problems: (1) Generalized weakness Status: Acute Assessment: TIA Hx CVA, r/o acute UTI dysphagia leg weakness blurry vision htn, chronic diastolic CHF Plan: Levaquin 500 IV Q24 Fluids NS 75 mL/H Labs PT/OT Home meds DVT PPx: Lovenox Neuro and Cardio Following Comment Review of Relevant I have reviewed the following items renard (where applicable) has been applied. Labs Laboratory Tests Test 02/18/19 21:15 02/18/19 23:12 02/19/19 00:30 02/19/19 03:00 White Blood Count 13.1 x10^3/uL (4.0-11.0) Red Blood Count 4.29 x10^6/uL (3.50-5.40) Hemoglobin 11.7 g/dL (12.0-15.5) Hematocrit 35.7 % (36.0-47.0) Mean Corpuscular Volume 83 fL (79-100) Mean Corpuscular Hemoglobin 27 pg (25-35) Mean Corpuscular Hemoglobin Concent 33 g/dL (31-37) Red Cell Distribution Width 14.3 % (11.5-14.5) Platelet Count 295 x10^3/uL (140-400) Neutrophils (%) (Auto) 84 % (31-73) Lymphocytes (%) (Auto) 8 % (24-48) Monocytes (%) (Auto) 7 % (0-9) Eosinophils (%) (Auto) 0 % (0-3) Basophils (%) (Auto) 1 % (0-3) Neutrophils # (Auto) 11.0 x10^3uL (1.8-7.7) Lymphocytes # (Auto) 1.1 x10^3/uL (1.0-4.8) Monocytes # (Auto) 0.9 x10^3/uL (0.0-1.1) Eosinophils # (Auto) 0.0 x10^3/uL (0.0-0.7) Basophils # (Auto) 0.1 x10^3/uL (0.0-0.2) Prothrombin Time 12.2 SEC (11.7-14.0) Prothromb Time International Ratio 0.9 (0.8-1.1) Activated Partial Thromboplast Time 35 SEC (24-38) Sodium Level 136 mmol/L (136-145) Potassium Level 3.8 mmol/L (3.5-5.1) Chloride Level 96 mmol/L (98-107) Carbon Dioxide Level 29 mmol/L (21-32) Anion Gap 11 (6-14) Blood Urea Nitrogen 8 mg/dL (7-20) Creatinine 1.1 mg/dL (0.6-1.0) Estimated GFR (Cockcroft-Gault) 59.2 BUN/Creatinine Ratio 7 (6-20) Glucose Level 129 mg/dL (70-99) Lactic Acid Level 0.8 mmol/L (0.4-2.0) Calcium Level 9.1 mg/dL (8.5-10.1) Magnesium Level 2.0 mg/dL (1.8-2.4) Total Bilirubin 0.2 mg/dL (0.2-1.0) Aspartate Amino Transf (AST/SGOT) 28 U/L (15-37) Alanine Aminotransferase (ALT/SGPT) 30 U/L (14-59) Alkaline Phosphatase 92 U/L (46-116) Creatine Kinase 58 U/L (26-192) Creatine Kinase MB (Mass) 0.5 ng/mL (0.0-3.6) Creatine Kinase MB Relative Index % (0-4) Troponin I Quantitative < 0.017 ng/mL (0.000-0.055) < 0.017 ng/mL (0.000-0.055) < 0.017 ng/mL (0.000-0.055) Total Protein 7.5 g/dL (6.4-8.2) Albumin 3.4 g/dL (3.4-5.0) Albumin/Globulin Ratio 0.8 (1.0-1.7) Lipase 54 U/L (73-393) Urine Collection Type Unknown Urine Color Yellow Urine Clarity Cloudy Urine pH 7.5 Urine Specific [place] <=1.005 Urine Protein 30 mg/dL (NEG-TRACE) Urine Glucose (UA) Negative mg/dL (NEG) Urine Ketones (Stick) Negative mg/dL (NEG) Urine Blood Small (NEG) Urine Nitrite Positive (NEG) Urine Bilirubin Negative (NEG) Urine Urobilinogen Dipstick 0.2 mg/dL (0.2 mg/dL) Urine Leukocyte Esterase Large (NEG) Urine RBC Occ /HPF (0-2) Urine WBC >40 /HPF (0-4) Urine Squamous Epithelial Cells Mod /LPF Urine Transitional Epithelial Cells Occ /LPF Urine Renal Epithelial Cells Occ /LPF Urine Bacteria Many /HPF (0-FEW) Urine Mucus Slight /LPF Triglycerides Level 226 mg/dL (0-150) Cholesterol Level 284 mg/dL (0-200) LDL Cholesterol, Calculated 209 mg/dL (0-100) VLDL Cholesterol, Calculated 45 mg/dL (0-40) Non-HDL Cholesterol Calculated 254 mg/dL (0-129) HDL Cholesterol 30 mg/dL (40-60) Cholesterol/HDL Ratio 9.5 Medications Current Medications Sodium Chloride 1,000 ml @ 1,000 mls/hr 1X ONCE IV Last administered on 02/18/19at 21:44; Start 02/18/19 at 21:30; Stop 02/18/19 at 22:29; Status DC Ondansetron HCl (Zofran) 4 mg PRN Q8HRS PRN IV NAUSEA/VOMITING 1ST CHOICE Last administered on 02/18/19at 21:44; Start 02/18/19 at 21:15; Stop 02/19/19 at 21:14; Status DC Aspirin (Felipe Aspirin) 325 mg 1X ONCE PO Last administered on 02/18/19at 21:44; Start 02/18/19 at 22:00; Stop 02/18/19 at 22:01; Status DC Labetalol HCl (Normodyne Iv Push) 10 mg 1X ONCE IVP Last administered on 02/18/19at 22:47; Start 02/18/19 at 22:30; Stop 02/18/19 at 22:31; Status DC Amlodipine Besylate (Norvasc) 10 mg 1X ONCE PO Last administered on 02/18/19at 22:47; Start 02/18/19 at 22:30; Stop 02/18/19 at 22:31; Status DC Amlodipine Besylate (Norvasc) 10 mg DAILY PO Last administered on 02/19/19 08:05; Start 02/19/19 at 09:00; Stop 02/19/19 at 12:45; Status DC Acetaminophen/ Hydrocodone Bitart (Lortab 7.5/325) 1 tab PRN Q6HRS PRN PO SEVERE PAIN Last administered on 02/20/19 08:32; Start 02/19/19 at 00:45 Metoprolol Tartrate (Lopressor) 25 mg BID PO Last administered on 02/20/19 08:33; Start 02/19/19 at 09:00 Tramadol HCl (Ultram) 50 mg PRN Q6HRS PRN PO PAIN MILD TO MOD Last administered on 02/19/19 08:00; Start 02/19/19 at 00:45 Atorvastatin Calcium (Lipitor) 10 mg QHS PO ; Start 02/19/19 at 21:00; Stop 02/19/19 at 21:00; Status DC Enoxaparin Sodium (Lovenox 40mg Syringe) 40 mg Q24H SQ Last administered on 02/20/19at 09:41; Start 02/19/19 at 09:00 Labetalol HCl (Normodyne Iv Push) 10 mg PRN Q10MIN PRN IVP HYPERTENSION, SEE COMMENTS; Start 02/19/19 at 09:00 Acetaminophen (Tylenol) 650 mg PRN Q6HRS PRN PO TEMP > 100.4F Last administered on 02/20/19 08:33; Start 02/19/19 at 09:00 Acetaminophen (Tylenol Supp) 650 mg PRN Q4HRS PRN TN TEMP > 100.4F; Start 02/19/19 at 09:00 Aspirin (Ecotrin) 325 mg DAILYWBKFT PO Last administered on 02/20/19at 08:32; Start 02/19/19 at 09:00 Aspirin (Aspirin) 300 mg PRN DAILY PRN TN IF UNABLE TO TAKE PO; Start 02/19/19 at 09:00 Simvastatin (Zocor) 20 mg HS PO Last administered on 02/19/19at 20:55; Start at 21:00 Amlodipine Besylate (Norvasc) 10 mg BID PO Last administered on 02/20/19at 08:33; Start 02/19/19 at 21:00 Amitriptyline HCl (Elavil) 75 mg QHS PO Last administered on 02/19/19 20:55; Start 02/19/19 at 21:00 Guaifenesin/ Codeine Phosphate (Robitussin Ac) 5 ml PRN Q6HRS PRN PO COUGH 1ST CHOICE Last administered on 02/19/19at 22:22; Start 02/19/19 at 22:00 Albuterol/ Ipratropium (Duoneb) 3 ml RTQID NEB Last administered on 02/20/19at 06:20; Start 02/19/19 at 23:00 Active Scripts Active Tramadol Hcl 50 Mg Tablet 50 Mg PO PRN Q6HRS PRN Simvastatin 20 Mg Tablet 1 Tab PO QHS Reported Metoprolol Tartrate 25 Mg Tablet 25 Mg PO BID Amlodipine Besylate 10 Mg Tablet 10 Mg PO BID Hydrocodone-Apap 7.5-325 (Hydrocodone Bit/Acetaminophen) 1 Each Tablet 7.5- 325 Mg PO Amitriptyline Hcl 75 Mg Tablet 75 Mg PO Vitals/I & O Vital Sign - Last 24 Hours 02/19/19 02/19/19 02/19/19 02/19/19 14:40 15:00 19:25 20:00 Temp 98.9 103.1 98.9 103.1 Pulse 86 102 Resp 20 22 B/P (MAP) 104/57 (73) 158/59 (92) Pulse Ox 98 94 O2 Delivery Nasal Cannula Nasal Cannula Nasal Cannula Nasal Cannula O2 Flow Rate 2.0 2.0 2.0 2.0 02/19/19 02/19/19 02/19/19 02/19/19 20:55 20:56 20:58 23:20 Temp 99.3 99.3 Pulse 102 102 76 Resp 18 B/P (MAP) 158/59 158/59 142/49 (80) Pulse Ox 98 96 O2 Delivery Nasal Cannula Nasal Cannula O2 Flow Rate 2.0 2.0 02/20/19 02/20/19 02/20/19 02/20/19 03:20 05:36 06:17 07:00 Temp 99.1 101.5 99.1 101.5 Pulse 95 96 102 Resp 20 20 B/P (MAP) 174/54 (94) 119/53 (75) 174/63 (100) Pulse Ox 94 98 96 95 O2 Delivery Nasal Cannula Nasal Cannula Nasal Cannula Nasal Cannula O2 Flow Rate 2.0 2.0 3.0 2.0 02/20/19 02/20/19 02/20/19 02/20/19 08:00 08:32 08:33 08:33 Pulse 102 102 B/P (MAP) 174/63 174/63 Pulse Ox 95 O2 Delivery Nasal Cannula Nasal Cannula O2 Flow Rate 2.0 2.0 02/20/19 02/20/19 09:35 10:57 Temp 98.2 98.2 Pulse 80 Resp 18 B/P (MAP) 150/57 (88) Pulse Ox 95 97 O2 Delivery Nasal Cannula Nasal Cannula O2 Flow Rate 2.0 2.0 Intake and Output 02/19/19 02/19/19 02/20/19 15:00 23:00 07:00 Intake Total 240 ml 120 ml 550 ml Output Total 350 ml Balance -110 ml 120 ml 550 ml RUBA NELSON III DO February 20, 2019 11:42
--- NOTE | 2019-02-20 12:06 | PDOC ---
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 of no clinical significance, left vertebral is likely dominant Brainstem cavernous hemangioma Intracranial aneurysm, carotid artery Anxiety and depression Now complaining of dysuria Hyperlipidemia Plan No additional neurological studies needed Treat dysuria Continue aspirin Rehabilitation modalities Hyperlipidemia management per internal medicine, there is no sign of a stroke or TIA so I will not automatically increase statin Subjective Complains of dysuria and back pain Objective Vital Signs Date Time Temp Pulse Resp B/P (MAP) Pulse Ox O2 Delivery O2 Flow Rate FiO2 02/20/19 11:41 97 Nasal Cannula 2.0 02/20/19 10:57 98.2 80 18 150/57 (88) 98.2 Intake and Output 02/20/19 06:59 Intake Total 910 ml Output Total 350 ml Balance 560 ml Intake Oral 910 ml Output Urine Total 350 ml # Voids 6 PHYSICAL EXAM Alert. Oriented to time, place and person. PERRL. EOMI. CN: no focal findings. Muscle tone: normal. Muscle strength: 4/5 DTR: 2+ Plantar reflex: flexor Gait: not examined in bed. Sensory exam: no abnormal findings. No cerebellar signs elicited. Review of Relevant I have reviewed the following items renard (where applicable) has been applied. Labs Laboratory Tests Test 02/18/19 21:15 02/18/19 23:12 02/19/19 00:30 02/19/19 03:00 White Blood Count 13.1 x10^3/uL (4.0-11.0) Red Blood Count 4.29 x10^6/uL (3.50-5.40) Hemoglobin 11.7 g/dL (12.0-15.5) Hematocrit 35.7 % (36.0-47.0) Mean Corpuscular Volume 83 fL (79-100) Mean Corpuscular Hemoglobin 27 pg (25-35) Mean Corpuscular Hemoglobin Concent 33 g/dL (31-37) Red Cell Distribution Width 14.3 % (11.5-14.5) Platelet Count 295 x10^3/uL (140-400) Neutrophils (%) (Auto) 84 % (31-73) Lymphocytes (%) (Auto) 8 % (24-48) Monocytes (%) (Auto) 7 % (0-9) Eosinophils (%) (Auto) 0 % (0-3) Basophils (%) (Auto) 1 % (0-3) Neutrophils # (Auto) 11.0 x10^3uL (1.8-7.7) Lymphocytes # (Auto) 1.1 x10^3/uL (1.0-4.8) Monocytes # (Auto) 0.9 x10^3/uL (0.0-1.1) Eosinophils # (Auto) 0.0 x10^3/uL (0.0-0.7) Basophils # (Auto) 0.1 x10^3/uL (0.0-0.2) Prothrombin Time 12.2 SEC (11.7-14.0) Prothromb Time International Ratio 0.9 (0.8-1.1) Activated Partial Thromboplast Time 35 SEC (24-38) Sodium Level 136 mmol/L (136-145) Potassium Level 3.8 mmol/L (3.5-5.1) Chloride Level 96 mmol/L (98-107) Carbon Dioxide Level 29 mmol/L (21-32) Anion Gap 11 (6-14) Blood Urea Nitrogen 8 mg/dL (7-20) Creatinine 1.1 mg/dL (0.6-1.0) Estimated GFR (Cockcroft-Gault) 59.2 BUN/Creatinine Ratio 7 (6-20) Glucose Level 129 mg/dL (70-99) Lactic Acid Level 0.8 mmol/L (0.4-2.0) Calcium Level 9.1 mg/dL (8.5-10.1) Magnesium Level 2.0 mg/dL (1.8-2.4) Total Bilirubin 0.2 mg/dL (0.2-1.0) Aspartate Amino Transf (AST/SGOT) 28 U/L (15-37) Alanine Aminotransferase (ALT/SGPT) 30 U/L (14-59) Alkaline Phosphatase 92 U/L (46-116) Creatine Kinase 58 U/L (26-192) Creatine Kinase MB (Mass) 0.5 ng/mL (0.0-3.6) Creatine Kinase MB Relative Index % (0-4) Troponin I Quantitative < 0.017 ng/mL (0.000-0.055) < 0.017 ng/mL (0.000-0.055) < 0.017 ng/mL (0.000-0.055) Total Protein 7.5 g/dL (6.4-8.2) Albumin 3.4 g/dL (3.4-5.0) Albumin/Globulin Ratio 0.8 (1.0-1.7) Lipase 54 U/L (73-393) Urine Collection Type Unknown Urine Color Yellow Urine Clarity Cloudy Urine pH 7.5 Urine Specific [place] <=1.005 Urine Protein 30 mg/dL (NEG-TRACE) Urine Glucose (UA) Negative mg/dL (NEG) Urine Ketones (Stick) Negative mg/dL (NEG) Urine Blood Small (NEG) Urine Nitrite Positive (NEG) Urine Bilirubin Negative (NEG) Urine Urobilinogen Dipstick 0.2 mg/dL (0.2 mg/dL) Urine Leukocyte Esterase Large (NEG) Urine RBC Occ /HPF (0-2) Urine WBC >40 /HPF (0-4) Urine Squamous Epithelial Cells Mod /LPF Urine Transitional Epithelial Cells Occ /LPF Urine Renal Epithelial Cells Occ /LPF Urine Bacteria Many /HPF (0-FEW) Urine Mucus Slight /LPF Triglycerides Level 226 mg/dL (0-150) Cholesterol Level 284 mg/dL (0-200) LDL Cholesterol, Calculated 209 mg/dL (0-100) VLDL Cholesterol, Calculated 45 mg/dL (0-40) Non-HDL Cholesterol Calculated 254 mg/dL (0-129) HDL Cholesterol 30 mg/dL (40-60) Cholesterol/HDL Ratio 9.5 Medications Current Medications Sodium Chloride 1,000 ml @ 1,000 mls/hr 1X ONCE IV Last administered on 02/18/19at 21:44; Start 02/18/19 at 21:30; Stop 02/18/19 at 22:29; Status DC Ondansetron HCl (Zofran) 4 mg PRN Q8HRS PRN IV NAUSEA/VOMITING 1ST CHOICE Last administered on 02/18/19at 21:44; Start 02/18/19 at 21:15; Stop 02/19/19 at 21:14; Status DC Aspirin (Felipe Aspirin) 325 mg 1X ONCE PO Last administered on 02/18/19at 21:44; Start 02/18/19 at 22:00; Stop 02/18/19 at 22:01; Status DC Labetalol HCl (Normodyne Iv Push) 10 mg 1X ONCE IVP Last administered on 02/18/19 22:47; Start 02/18/19 at 22:30; Stop 02/18/19 at 22:31; Status DC Amlodipine Besylate (Norvasc) 10 mg 1X ONCE PO Last administered on 02/18/19 22:47; Start 02/18/19 at 22:30; Stop 02/18/19 at 22:31; Status DC Amlodipine Besylate (Norvasc) 10 mg DAILY PO Last administered on 02/19/19 08:05; Start 02/19/19 at 09:00; Stop 02/19/19 at 12:45; Status DC Acetaminophen/ Hydrocodone Bitart (Lortab 7.5/325) 1 tab PRN Q6HRS PRN PO SEVERE PAIN Last administered on 02/20/19 08:32; Start 02/19/19 at 00:45 Metoprolol Tartrate (Lopressor) 25 mg BID PO Last administered on 02/20/19 08:33; Start 02/19/19 at 09:00 Tramadol HCl (Ultram) 50 mg PRN Q6HRS PRN PO PAIN MILD TO MOD Last administered on 02/20/19 11:41; Start 02/19/19 at 00:45 Atorvastatin Calcium (Lipitor) 10 mg QHS PO ; Start 02/19/19 at 21:00; Stop 01/23 at 21:00; Status DC Enoxaparin Sodium (Lovenox 40mg Syringe) 40 mg Q24H SQ Last administered on 02/20/19 09:41; Start 02/19/19 at 09:00 Labetalol HCl (Normodyne Iv Push) 10 mg PRN Q10MIN PRN IVP HYPERTENSION, SEE COMMENTS; Start 02/19/19 at 09:00 Acetaminophen (Tylenol) 650 mg PRN Q6HRS PRN PO TEMP > 100.4F Last administered on 02/20/19 08:33; Start 02/19/19 at 09:00 Acetaminophen (Tylenol Supp) 650 mg PRN Q4HRS PRN DC TEMP > 100.4F; Start 02/19/19 at 09:00 Aspirin (Ecotrin) 325 mg DAILYWBKFT PO Last administered on 02/20/19 08:32; Start 02/19/19 at 09:00 Aspirin (Aspirin) 300 mg PRN DAILY PRN DC IF UNABLE TO TAKE PO; Start 02/19/19 at 09:00 Simvastatin (Zocor) 20 mg HS PO Last administered on 02/19/19at 20:55; Start 02/19/19 at 21:00 Amlodipine Besylate (Norvasc) 10 mg BID PO Last administered on 02/20/19 08:33; Start 02/19/19 at 21:00 Amitriptyline HCl (Elavil) 75 mg QHS PO Last administered on 02/19/19 20:55; Start 02/19/19 at 21:00 Guaifenesin/ Codeine Phosphate (Robitussin Ac) 5 ml PRN Q6HRS PRN PO COUGH 1ST CHOICE Last administered on 02/19/19 22:22; Start 02/19/19 at 22:00 Albuterol/ Ipratropium (Duoneb) 3 ml RTQID NEB Last administered on 02/20/19 06:20; Start 02/19/19 at 23:00 Levofloxacin/ Dextrose 100 ml @ 100 mls/hr Q24H IV ; Start 02/20/19 at 12:00 Active Scripts Active Tramadol Hcl 50 Mg Tablet 50 Mg PO PRN Q6HRS PRN Simvastatin 20 Mg Tablet 1 Tab PO QHS Reported Metoprolol Tartrate 25 Mg Tablet 25 Mg PO BID Amlodipine Besylate 10 Mg Tablet 10 Mg PO BID Hydrocodone-Apap 7.5-325 (Hydrocodone Bit/Acetaminophen) 1 Each Tablet 7.5- 325 Mg PO Amitriptyline Hcl 75 Mg Tablet 75 Mg PO Vitals/I & O Vital Sign - Last 24 Hours 02/19/19 02/19/19 02/19/19 02/19/19 14:40 15:00 19:25 20:00 Temp 98.9 103.1 98.9 103.1 Pulse 86 102 Resp 20 22 B/P (MAP) 104/57 (73) 158/59 (92) Pulse Ox 98 94 O2 Delivery Nasal Cannula Nasal Cannula Nasal Cannula Nasal Cannula O2 Flow Rate 2.0 2.0 2.0 2.0 02/19/19 02/19/19 02/19/19 02/19/19 20:55 20:56 20:58 23:20 Temp 99.3 99.3 Pulse 102 102 76 Resp 18 B/P (MAP) 158/59 158/59 142/49 (80) Pulse Ox 98 96 O2 Delivery Nasal Cannula Nasal Cannula O2 Flow Rate 2.0 2.0 02/20/19 02/20/19 02/20/19 02/20/19 03:20 05:36 06:17 07:00 Temp 99.1 101.5 99.1 101.5 Pulse 95 96 102 Resp 20 20 B/P (MAP) 174/54 (94) 119/53 (75) 174/63 (100) Pulse Ox 94 98 96 95 O2 Delivery Nasal Cannula Nasal Cannula Nasal Cannula Nasal Cannula O2 Flow Rate 2.0 2.0 3.0 2.0 02/20/19 02/20/19 02/20/19 02/20/19 08:00 08:32 08:33 08:33 Pulse 102 102 B/P (MAP) 174/63 174/63 Pulse Ox 95 O2 Delivery Nasal Cannula Nasal Cannula O2 Flow Rate 2.0 2.0 02/20/19 02/20/19 02/20/19 09:35 10:57 11:41 Temp 98.2 98.2 Pulse 80 Resp 18 B/P (MAP) 150/57 (88) Pulse Ox 95 97 97 O2 Delivery Nasal Cannula Nasal Cannula Nasal Cannula O2 Flow Rate 2.0 2.0 2.0 Intake and Output 02/19/19 02/19/19 02/20/19 14:59 22:59 06:59 Intake Total 240 ml 120 ml 550 ml Output Total 350 ml Balance -110 ml 120 ml 550 ml Images MRI Brain without contrast There is no restricted diffusion suggestive of recent infarct. There is no new midline shift, extra-axial fluid collection, intra-axial mass effect. There is again decreased signal on T2 and gradient echo sequences involving the left zully and midbrain not associated with new edema. There are again a few small foci of T2 and FLAIR hyperintense signal of the supratentorial white matter, not significantly changed. There is again [id number] generalized supratentorial atrophy. There has been lens surgery bilaterally in the interval. There is mild thickening of the mastoid air cells bilaterally. There is preservation of the major arterial flow voids at the skull base. There is patchy negligible ethmoid air cell mucosal thickening. There is some deviation of the nasal septum to the right. Frontal sinus is not significantly pneumatized. Cerebellar tonsils are normal in location. There is preserved marrow signal clivus. There is no new abnormality of the pineal gland or pituitary gland. There is degenerative disc disease of the visualized C4-5 level. Impression: 1. Intracranial findings are similar compared with the 2017 exam. There is again signal abnormality of the left zully and midbrain likely related to underlying cavernous malformation, no new associated edema. There is again very mild T2 and FLAIR hyperintense signal of the supratentorial parenchyma which may be due to foci of nonspecific gliosis. There is again generalized supratentorial atrophy. DOPPLER CAROTID BILAT Clinical Indication: CVA. Procedure: Pulsed wave and color-flow duplex imaging was utilized to evaluate the extracranial carotid arteries. Comparison: None. Findings: RIGHT SIDE: Moderate atherosclerotic plaque on arteaga-scale images. Distal CCA peak systolic velocity 123 cm/sec. ICA peak systolic velocity 201 cm/sec. The right ICA/CCA ratio is 1.6. Flow within the right vertebral artery and right ECA is directed antegrade. LEFT SIDE: Moderate atherosclerotic plaque on arteaga-scale images. Distal CCA peak systolic velocity 120 cm/sec. ICA peak systolic velocity 197 cm/sec. The left ICA/CCA ratio is 1.6. Elevated velocity in the ECA measuring 213 cm/s. Flow within the left vertebral artery and left ECA is directed antegrade. Carotid legend: CCA = common carotid artery ICA = internal carotid artery ECA = external carotid artery IMPRESSION: 1. 50-69 percent stenosis in the right ICA and left ICA. 2. Moderate stenosis in the left ECA. 3. Low velocity flow in the right vertebral artery. Echo: LEFT VENTRICLE The left ventricle is normal size. There is mild concentric left ventricular hypertrophy. The left ventricular systolic function is normal and the ejection fraction is within normal range. The Ejection Fraction is 55-60%. There is normal LV segmental wall motion. Transmitral Doppler flow pattern is Grade I- abnormal relaxation pattern. RIGHT VENTRICLE The right ventricle is normal size. There is normal right ventricular wall thickness. The right ventricular systolic function is normal. ATRIA The left atrium size is normal. The right atrium size is normal. The interatrial septum is intact with no evidence for an atrial septal defect or patent foramen ovale as noted on 2-D or Doppler imaging. AORTIC VALVE The aortic valve is thickened but opens well. Doppler and Color Flow revealed no significant aortic regurgitation. There is no significant aortic valvular stenosis. MITRAL VALVE The mitral valve is normal in structure and function. Mitral annular calcification is mild to moderate. There is no evidence of mitral valve prolapse. There is no mitral valve stenosis. Doppler and Color Flow revealed trace mitral valve regurgitation. TRICUSPID VALVE The tricuspid valve is normal in structure and function. Doppler and Color Flow revealed trace tricuspid regurgitation with an estimated PAP of 38 mmHg. There is no tricuspid valve stenosis. PULMONIC VALVE The pulmonic valve is not well visualized. Doppler and Color Flow revealed no pulmonic valvular regurgitation. GREAT VESSELS The aortic root is normal in size. The IVC is normal in size and collapses >50% with inspiration. PERICARDIAL EFFUSION There is no evidence of significant pericardial effusion. Critical Notification Critical Value: No <Conclusion> The left ventricle is normal size. The left ventricular systolic function is normal and the ejection fraction is within normal range. The Ejection Fraction is 55-60%. There is mild concentric left ventricular hypertrophy. There is no significant aortic valvular stenosis. Doppler and Color Flow revealed no significant aortic regurgitation. Doppler and Color Flow revealed trace mitral valve regurgitation. Doppler and Color Flow revealed trace tricuspid regurgitation with an estimated PAP of 38 mmHg. JALYN VAZQUEZ MD February 20, 2019 12:06
--- NOTE | 2019-02-20 12:32 | PDOC ---
TONYIQRA OJEDA UNIONMELT OPERATOR 02/20/19 1232: CARDIO Progress Notes Date and Time Date of Service 02/20/2019 Time of Evaluation 1200 Subjective Subjective: No Chest Pain, No shortness of breath, No Palpitations, Other (having burning and hurts when urinating and itches) Vitals Vitals Vital Signs Date Time Temp Pulse Resp B/P (MAP) Pulse Ox O2 Delivery O2 Flow Rate FiO2 02/20/19 11:41 97 Nasal Cannula 2.0 02/20/19 10:57 98.2 80 18 150/57 (88) 98.2 Weight Weight [ ] Input and Output Intake and Output Intake and Output 02/20/19 07:00 Intake Total 910 ml Output Total 350 ml Balance 560 ml Intake Oral 910 ml Output Urine Total 350 ml # Voids 6 Physical Exam HEENT: Neck Supple W Full Motion Chest: Symmetric LUNGS: Clear to Auscultation Heart: S1S2, RRR (SR) Abdomen: Soft N/T Extremities: No Calf Tenderness Neurology: alert, oriented, follow commands Assessment Assessment 1. UTI/fever; per PCP 2. Metabolic encephalopathy: no new stroke. extremity weakness and visual disturbance resolved. neurology following 3. Accelerated HTN: labile episodes. EF and WM nml 4. Arrhythmia: more of PSVT possibly PAFIB, few episodes overnight. no VT, 4. Hx of CVA/TIA with known bilateral carotid (with aneurysmal dilatation of YANN) and vertebral stenosis 5. Hx of myalgia with statin: tried 4-5 statins per pt. in the past Recommendations 1. 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 2. Change norvasc to daily. Start on lisinopril and increase metoprolol to 50 mg bid. 3. ASA, Start on zetia. Unable to optimize statin due to fear of myalgia. agreed with zocor last night. suggest crestor with hydrophilic component not available in hospital, but could transition prior to DC with coq10. 4. MCOT as an outpt and note AFIB burden and note any need to transition to OAC. NAVARRO GUEVARA MD 02/20/19 6606: CARDIO Progress Notes Assessment Assessment Patient seen and examined. Agree with MAINFRAME SYSTEMS ADMINISTRATOR's assessment and plan. Agree with increasing metoprolol and starting lisinopril for better blood pressure control Plan outpatient event monitor to assess arrhythmia burden IQRA BYNUM APRN February 20, 2019 12:32 NAVARRO GUEVARA MD February 20, 2019 17:17
[2019-02-20] MEDS ORDERED: METOPROLOL TART IMMED RELEASE 25 MG TABLET. PO ONE (12:45)
[2019-02-20] MEDS: IV NORMAL SALINE 1000ML BAG 1,000 ML IV SCH (13:29)
[2019-02-20] MEDS: EZETIMIBE 10 MG TABLET. PO SCH (13:30)
[2019-02-20] MEDS: LISINOPRIL 10 MG TABLET PO SCH (13:31)
[2019-02-20] MEDS: AMITRIPTYLINE HCL 25 MG TABLET. PO SCH (20:06)
[2019-02-20] MEDS: SIMVASTATIN 20 MG TABLET PO SCH (20:07)
[2019-02-21] MEDS: IV NORMAL SALINE 1000ML BAG 1,000 ML IV SCH ×2 (03:18→15:55)
[2019-02-21] MEDS: HYDROcodone/APAP 7.5/325MG 1 TAB TABLET PO PRN (03:20)
[2019-02-21 03:47] VITALS: BP 113/50
[2019-02-21 07:00] VITALS: BP 162/62
[2019-02-21 07:55] LABS: CALCIUM 8.4 mg/dL (8.5-10.1); CREATININE 1.1 mg/dL (0.6-1.0); GFR 59.2; POTASSIUM 4.1 mmol/L (3.5-5.1)
[2019-02-21] MEDS: IPRATRPIUM/ALBUTEROL 0.5/2.5MG 3 ML NEBU. NEB SCH ×5 (07:57→20:46)
[2019-02-21 08:00] LABS: BASO % 0 % (0-3); EOS # 0.1 x10^3/uL (0.0-0.7); EOS % 1 % (0-3); HEMATOCRIT 31.6 % (36.0-47.0); HEMOGLOBIN 10.4 g/dL (12.0-15.5); LYMPH % 10 % (24-48); MEAN CORPUSCULAR HEMOGLOBIN 28 pg (25-35); MEAN CORPUSCULAR HGB CONC 33 g/dL (31-37); MEAN CORPUSCULAR VOLUME 85 fL (79-100); MONO # 1.4 x10^3/uL (0.0-1.1); MONO % 13 % (0-9); NEUT # 8.4 x10^3uL (1.8-7.7); NEUT % 76 % (31-73); PLATELET COUNT 251 x10^3/uL (140-400); RED BLOOD COUNT 3.73 x10^6/uL (3.50-5.40); RED CELL DISTRIBUTION WIDTH 14.8 % (11.5-14.5); WHITE BLOOD COUNT 10.9 x10^3/uL (4.0-11.0)
[2019-02-21] MEDS: EZETIMIBE 10 MG TABLET. PO SCH (09:07)
[2019-02-21] MEDS: LISINOPRIL 10 MG TABLET PO SCH (09:08)
[2019-02-21] MEDS: ASPIRIN ENTERIC COATED 325 MG TABLET.DR. PO SCH (09:08)
[2019-02-21] MEDS: amLODIPine BESYLATE 10 MG TABLET PO SCH (09:08)
[2019-02-21] MEDS: METOPROLOL TART IMMED RELEASE 25 MG TABLET. PO SCH ×2 (09:08→20:03)
[2019-02-21] MEDS: ENOXAPARIN 40 MG/0.4 ML SYRINGE. SQ SCH (09:09)
[2019-02-21] MEDS: guaiFENesin/CODEINE 100mg/10mg 5 ML LIQUID PO PRN (09:21)
[2019-02-21 11:00] VITALS: BP 147/101
--- NOTE | 2019-02-21 12:09 | NUR ---
Discussed 6 beat run of v-tach with Mireya. Will continue to monitor and notify her if it happens again.
[2019-02-21] MEDS: ACETAMINOPHEN 325 MG TABLET. PO PRN (12:15)
[2019-02-21] MEDS: traMADol 50 MG TABLET PO PRN ×2 (12:18→20:06)
--- NOTE | 2019-02-21 13:00 | NUR ---
SW following pt. Spoke with pt about PT/OT recommendation for SNU. Pt declining SNU at this time. Discussed about HH and pt stated she wants to think over it and requested SW to return back.
--- NOTE | 2019-02-21 13:12 | PDOC ---
PROGRESS NOTES Chief Complaint Chief Complaint TIA Hx CVA, r/o acute UTI dysphagia leg weakness blurry vision htn, chronic diastolic CHF History of Present Illness History of Present Illness Patient seen and examined. Pt appears to be in mild pain. WBC trending down. Patient complains of GIORDANO and no longer complains of back pain. Vitals Vitals Vital Signs Date Time Temp Pulse Resp B/P (MAP) Pulse Ox O2 Delivery O2 Flow Rate FiO2 02/21/19 11:00 99.0 81 20 147/101 (116) 93 Room Air 99.0 02/20/19 21:14 3.0 Physical Exam General: Alert, Oriented X3, Cooperative, mild distress Heart: Regular rate (SR), Normal S1, Normal S2, Other (2/6 systolic murmur to LLS border) Lungs: Clear Abdomen: Soft, No tenderness Extremities: No cyanosis, No edema Skin: No breakdown, No significant lesion Labs LABS Laboratory Tests Test 02/21/19 06:30 White Blood Count 10.9 x10^3/uL (4.0-11.0) Red Blood Count 3.73 x10^6/uL (3.50-5.40) Hemoglobin 10.4 g/dL (12.0-15.5) Hematocrit 31.6 % (36.0-47.0) Mean Corpuscular Volume 85 fL (79-100) Mean Corpuscular Hemoglobin 28 pg (25-35) Mean Corpuscular Hemoglobin Concent 33 g/dL (31-37) Red Cell Distribution Width 14.8 % (11.5-14.5) Platelet Count 251 x10^3/uL (140-400) Neutrophils (%) (Auto) 76 % (31-73) Lymphocytes (%) (Auto) 10 % (24-48) Monocytes (%) (Auto) 13 % (0-9) Eosinophils (%) (Auto) 1 % (0-3) Basophils (%) (Auto) 0 % (0-3) Neutrophils # (Auto) 8.4 x10^3uL (1.8-7.7) Lymphocytes # (Auto) 1.0 x10^3/uL (1.0-4.8) Monocytes # (Auto) 1.4 x10^3/uL (0.0-1.1) Eosinophils # (Auto) 0.1 x10^3/uL (0.0-0.7) Basophils # (Auto) 0.0 x10^3/uL (0.0-0.2) Sodium Level 135 mmol/L (136-145) Potassium Level 4.1 mmol/L (3.5-5.1) Chloride Level 100 mmol/L (98-107) Carbon Dioxide Level 27 mmol/L (21-32) Anion Gap 8 (6-14) Blood Urea Nitrogen 14 mg/dL (7-20) Creatinine 1.1 mg/dL (0.6-1.0) Estimated GFR (Cockcroft-Gault) 59.2 Glucose Level 101 mg/dL (70-99) Calcium Level 8.4 mg/dL (8.5-10.1) Magnesium Level 2.3 mg/dL (1.8-2.4) Review of Systems Review of Systems Patient complains of GIORDANO Patient denies SOB Assessment and Plan Assessmemt and Plan Problems Medical Problems: (1) Generalized weakness Status: Acute Assessment: TIA Hx CVA, r/o acute UTI dysphagia leg weakness blurry vision htn, chronic diastolic CHF Plan: Levofloxacin IV 100 mL/h Q24 Fluids NS 75 mL/H Labs PT/OT Home meds DVT PPx: Lovenox Discharge Dispo: Probable discharge tomorrow Neuro and Cardio Following Comment Review of Relevant I have reviewed the following items renard (where applicable) has been applied. Labs Laboratory Tests Test 02/21/19 06:30 White Blood Count 10.9 x10^3/uL (4.0-11.0) Red Blood Count 3.73 x10^6/uL (3.50-5.40) Hemoglobin 10.4 g/dL (12.0-15.5) Hematocrit 31.6 % (36.0-47.0) Mean Corpuscular Volume 85 fL (79-100) Mean Corpuscular Hemoglobin 28 pg (25-35) Mean Corpuscular Hemoglobin Concent 33 g/dL (31-37) Red Cell Distribution Width 14.8 % (11.5-14.5) Platelet Count 251 x10^3/uL (140-400) Neutrophils (%) (Auto) 76 % (31-73) Lymphocytes (%) (Auto) 10 % (24-48) Monocytes (%) (Auto) 13 % (0-9) Eosinophils (%) (Auto) 1 % (0-3) Basophils (%) (Auto) 0 % (0-3) Neutrophils # (Auto) 8.4 x10^3uL (1.8-7.7) Lymphocytes # (Auto) 1.0 x10^3/uL (1.0-4.8) Monocytes # (Auto) 1.4 x10^3/uL (0.0-1.1) Eosinophils # (Auto) 0.1 x10^3/uL (0.0-0.7) Basophils # (Auto) 0.0 x10^3/uL (0.0-0.2) Sodium Level 135 mmol/L (136-145) Potassium Level 4.1 mmol/L (3.5-5.1) Chloride Level 100 mmol/L (98-107) Carbon Dioxide Level 27 mmol/L (21-32) Anion Gap 8 (6-14) Blood Urea Nitrogen 14 mg/dL (7-20) Creatinine 1.1 mg/dL (0.6-1.0) Estimated GFR (Cockcroft-Gault) 59.2 Glucose Level 101 mg/dL (70-99) Calcium Level 8.4 mg/dL (8.5-10.1) Magnesium Level 2.3 mg/dL (1.8-2.4) Laboratory Tests Test 02/21/19 06:30 White Blood Count 10.9 x10^3/uL (4.0-11.0) Red Blood Count 3.73 x10^6/uL (3.50-5.40) Hemoglobin 10.4 g/dL (12.0-15.5) Hematocrit 31.6 % (36.0-47.0) Mean Corpuscular Volume 85 fL (79-100) Mean Corpuscular Hemoglobin 28 pg (25-35) Mean Corpuscular Hemoglobin Concent 33 g/dL (31-37) Red Cell Distribution Width 14.8 % (11.5-14.5) Platelet Count 251 x10^3/uL (140-400) Neutrophils (%) (Auto) 76 % (31-73) Lymphocytes (%) (Auto) 10 % (24-48) Monocytes (%) (Auto) 13 % (0-9) Eosinophils (%) (Auto) 1 % (0-3) Basophils (%) (Auto) 0 % (0-3) Neutrophils # (Auto) 8.4 x10^3uL (1.8-7.7) Lymphocytes # (Auto) 1.0 x10^3/uL (1.0-4.8) Monocytes # (Auto) 1.4 x10^3/uL (0.0-1.1) Eosinophils # (Auto) 0.1 x10^3/uL (0.0-0.7) Basophils # (Auto) 0.0 x10^3/uL (0.0-0.2) Sodium Level 135 mmol/L (136-145) Potassium Level 4.1 mmol/L (3.5-5.1) Chloride Level 100 mmol/L (98-107) Carbon Dioxide Level 27 mmol/L (21-32) Anion Gap 8 (6-14) Blood Urea Nitrogen 14 mg/dL (7-20) Creatinine 1.1 mg/dL (0.6-1.0) Estimated GFR (Cockcroft-Gault) 59.2 Glucose Level 101 mg/dL (70-99) Calcium Level 8.4 mg/dL (8.5-10.1) Magnesium Level 2.3 mg/dL (1.8-2.4) Microbiology 02/18/19 Urine Culture - Preliminary, Resulted 02/18/19 Urine Culture Result 1 (MER) - Preliminary, Resulted Medications Current Medications Sodium Chloride 1,000 ml @ 1,000 mls/hr 1X ONCE IV Last administered on 02/18/19at 21:44; Start 02/18/19 at 21:30; Stop 02/18/19 at 22:29; Status DC Ondansetron HCl (Zofran) 4 mg PRN Q8HRS PRN IV NAUSEA/VOMITING 1ST CHOICE Last administered on 02/18/19at 21:44; Start 02/18/19 at 21:15; Stop 02/19/19 at 21:14; Status DC Aspirin (Felipe Aspirin) 325 mg 1X ONCE PO Last administered on 02/18/19at 21:44; Start 02/18/19 at 22:00; Stop 02/18/19 at 22:01; Status DC Labetalol HCl (Normodyne Iv Push) 10 mg 1X ONCE IVP Last administered on 02/18/19at 22:47; Start 02/18/19 at 22:30; Stop 02/18/19 at 22:31; Status DC Amlodipine Besylate (Norvasc) 10 mg 1X ONCE PO Last administered on 02/18/19at 22:47; Start 02/18/19 at 22:30; Stop 02/18/19 at 22:31; Status DC Amlodipine Besylate (Norvasc) 10 mg DAILY PO Last administered on 02/19/19 08:05; Start 02/19/19 at 09:00; Stop 02/19/19 at 12:45; Status DC Acetaminophen/ Hydrocodone Bitart (Lortab 7.5/325) 1 tab PRN Q6HRS PRN PO SEVERE PAIN Last administered on 02/21/19 03:20; Start 02/19/19 at 00:45 Metoprolol Tartrate (Lopressor) 25 mg BID PO Last administered on 02/20/19 08:33; Start 02/19/19 at 09:00; Stop 02/20/19 at 12:32; Status DC Tramadol HCl (Ultram) 50 mg PRN Q6HRS PRN PO PAIN MILD TO MOD Last administered on 02/21/19 12:18; Start 02/19/19 at 00:45 Atorvastatin Calcium (Lipitor) 10 mg QHS PO ; Start 02/19/19 at 21:00; Stop 02/19/19 at 21:00; Status DC Enoxaparin Sodium (Lovenox 40mg Syringe) 40 mg Q24H SQ Last administered on 02/21/19 09:09; Start 02/19/19 at 09:00 Labetalol HCl (Normodyne Iv Push) 10 mg PRN Q10MIN PRN IVP HYPERTENSION, SEE COMMENTS; Start 02/19/19 at 09:00 Acetaminophen (Tylenol) 650 mg PRN Q6HRS PRN PO TEMP > 100.4F Last administered on 02/21/19 12:15; Start 02/19/19 at 09:00 Acetaminophen (Tylenol Supp) 650 mg PRN Q4HRS PRN [place] TEMP > 100.4F; Start 02/19/19 at 09:00 Aspirin (Ecotrin) 325 mg DAILYWBKFT PO Last administered on 02/21/19 09:08; Start 02/19/19 at 09:00 Aspirin (Aspirin) 300 mg PRN DAILY PRN [place] IF UNABLE TO TAKE PO; Start 02/19/19 at 09:00 Simvastatin (Zocor) 20 mg HS PO Last administered on 02/20/19 20:07; Start 02/19/19 at 21:00 Amlodipine Besylate (Norvasc) 10 mg BID PO Last administered on 02/20/19 08:33; Start 02/19/19 at 21:00; Stop 02/20/19 at 12:30; Status DC Amitriptyline HCl (Elavil) 75 mg QHS PO Last administered on 02/20/19 20:06; Start 02/19/19 at 21:00 Guaifenesin/ Codeine Phosphate (Robitussin Ac) 5 ml PRN Q6HRS PRN PO COUGH 1ST CHOICE Last administered on 02/21/19 09:21; Start 02/19/19 at 22:00 Albuterol/ Ipratropium (Duoneb) 3 ml RTQID NEB Last administered on 02/20/19 21:13; Start 02/19/19 at 23:00 Levofloxacin/ Dextrose 100 ml @ 100 mls/hr Q24H IV Last administered on 02/21/19 at 12:16; Start 02/20/19 at 12:00 Amlodipine Besylate (Norvasc) 10 mg DAILY PO Last administered on 02/21/19 09:08; Start 02/21/19 at 09:00 Metoprolol Tartrate (Lopressor) 50 mg BID PO Last administered on 02/21/19 09:08; Start 02/20/19 at 21:00 Lisinopril (Prinivil) 10 mg DAILY PO Last administered on 02/21/19 09:08; Start 02/20/19 at 13:00 Metoprolol Tartrate (Lopressor) 25 mg 1X ONCE PO Last administered on 02/20/19 13:30; Start 02/20/19 at 12:45; Stop 02/20/19 at 12:46; Status DC EZETIMIBE (Zetia) 10 mg DAILY PO Last administered on 02/21/19 09:07; Start 02/20/19 at 13:00 Sodium Chloride 1,000 ml @ 75 mls/hr [id number] IV Last administered on 5/2/19at 03:18; Start 02/20/19 at 13:15 Active Scripts Active Tramadol Hcl 50 Mg Tablet 50 Mg PO PRN Q6HRS PRN Simvastatin 20 Mg Tablet 1 Tab PO QHS Reported Metoprolol Tartrate 25 Mg Tablet 25 Mg PO BID Amlodipine Besylate 10 Mg Tablet 10 Mg PO BID Hydrocodone-Apap 7.5-325 (Hydrocodone Bit/Acetaminophen) 1 Each Tablet 7.5- 325 Mg PO Amitriptyline Hcl 75 Mg Tablet 75 Mg PO Vitals/I & O Vital Sign - Last 24 Hours 02/20/19 02/20/19 02/20/19 02/20/19 13:15 13:30 13:31 14:51 Pulse 80 80 B/P (MAP) 150/57 150/57 Pulse Ox 97 97 O2 Delivery Nasal Cannula Nasal Cannula O2 Flow Rate 3.0 3.0 02/20/19 02/20/19 02/20/19 02/20/19 15:00 15:54 15:59 19:15 Temp 99.7 102.8 99.7 102.8 Pulse 108 100 Resp 24 24 B/P (MAP) 213/75 (121) 174/58 (96) Pulse Ox 94 94 90 O2 Delivery Room Air Room Air Nasal Cannula Room Air O2 Flow Rate 3.0 02/20/19 02/20/19 02/20/19 02/20/19 20:07 20:15 21:14 23:15 Temp 100.4 100.4 Pulse 100 79 Resp 20 B/P (MAP) 174/58 155/41 (79) Pulse Ox 93 90 O2 Delivery Room Air Nasal Cannula Room Air O2 Flow Rate 3.0 02/21/19 02/21/19 02/21/19 02/21/19 03:47 07:00 08:00 09:08 Temp 99.9 100.4 99.9 100.4 Pulse 78 93 93 Resp 20 18 B/P (MAP) 113/50 (71) 162/62 (95) 162/62 Pulse Ox 91 93 O2 Delivery Room Air Room Air Room Air 02/21/19 02/21/19 02/21/19 09:08 09:08 11:00 Temp 99.0 99.0 Pulse 93 93 81 Resp 20 B/P (MAP) 162/62 162/62 147/101 (116) Pulse Ox 93 O2 Delivery Room Air Intake and Output 02/20/19 02/20/19 02/21/19 14:59 22:59 06:59 Intake Total 200 ml Output Total 750 ml 350 ml Balance -750 ml -150 ml RUBA NELSON III DO February 21, 2019 13:11
--- NOTE | 2019-02-21 14:21 | PDOC ---
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 of no clinical significance, left vertebral is likely dominant Brainstem cavernous hemangioma Intracranial aneurysm, carotid artery Anxiety and depression Now complaining of dysuria, but better Hyperlipidemia Plan No additional neurological studies needed Treat dysuria Continue aspirin Rehabilitation modalities Hyperlipidemia management per internal medicine, there is no sign of a stroke or TIA so I will not automatically increase statin Subjective Wants to go home tomorrow Objective Vital Signs Date Time Temp Pulse Resp B/P (MAP) Pulse Ox O2 Delivery O2 Flow Rate FiO2 02/21/19 11:00 99.0 81 20 147/101 (116) 93 Room Air 99.0 02/20/19 21:14 3.0 Intake and Output 02/21/19 06:59 Intake Total 200 ml Output Total 1100 ml Balance -900 ml Intake Oral 200 ml Output Urine Total 1100 ml PHYSICAL EXAM Alert. Oriented to time, place and person. PERRL. EOMI. CN: no focal findings. Muscle tone: normal. Muscle strength: 4/5 DTR: 2+ Plantar reflex: flexor Gait: not examined in bed. Sensory exam: no abnormal findings. No cerebellar signs elicited. Review of Relevant I have reviewed the following items renard (where applicable) has been applied. Labs Laboratory Tests Test 02/21/19 06:30 White Blood Count 10.9 x10^3/uL (4.0-11.0) Red Blood Count 3.73 x10^6/uL (3.50-5.40) Hemoglobin 10.4 g/dL (12.0-15.5) Hematocrit 31.6 % (36.0-47.0) Mean Corpuscular Volume 85 fL (79-100) Mean Corpuscular Hemoglobin 28 pg (25-35) Mean Corpuscular Hemoglobin Concent 33 g/dL (31-37) Red Cell Distribution Width 14.8 % (11.5-14.5) Platelet Count 251 x10^3/uL (140-400) Neutrophils (%) (Auto) 76 % (31-73) Lymphocytes (%) (Auto) 10 % (24-48) Monocytes (%) (Auto) 13 % (0-9) Eosinophils (%) (Auto) 1 % (0-3) Basophils (%) (Auto) 0 % (0-3) Neutrophils # (Auto) 8.4 x10^3uL (1.8-7.7) Lymphocytes # (Auto) 1.0 x10^3/uL (1.0-4.8) Monocytes # (Auto) 1.4 x10^3/uL (0.0-1.1) Eosinophils # (Auto) 0.1 x10^3/uL (0.0-0.7) Basophils # (Auto) 0.0 x10^3/uL (0.0-0.2) Sodium Level 135 mmol/L (136-145) Potassium Level 4.1 mmol/L (3.5-5.1) Chloride Level 100 mmol/L (98-107) Carbon Dioxide Level 27 mmol/L (21-32) Anion Gap 8 (6-14) Blood Urea Nitrogen 14 mg/dL (7-20) Creatinine 1.1 mg/dL (0.6-1.0) Estimated GFR (Cockcroft-Gault) 59.2 Glucose Level 101 mg/dL (70-99) Calcium Level 8.4 mg/dL (8.5-10.1) Magnesium Level 2.3 mg/dL (1.8-2.4) Laboratory Tests Test 02/21/19 06:30 White Blood Count 10.9 x10^3/uL (4.0-11.0) Red Blood Count 3.73 x10^6/uL (3.50-5.40) Hemoglobin 10.4 g/dL (12.0-15.5) Hematocrit 31.6 % (36.0-47.0) Mean Corpuscular Volume 85 fL (79-100) Mean Corpuscular Hemoglobin 28 pg (25-35) Mean Corpuscular Hemoglobin Concent 33 g/dL (31-37) Red Cell Distribution Width 14.8 % (11.5-14.5) Platelet Count 251 x10^3/uL (140-400) Neutrophils (%) (Auto) 76 % (31-73) Lymphocytes (%) (Auto) 10 % (24-48) Monocytes (%) (Auto) 13 % (0-9) Eosinophils (%) (Auto) 1 % (0-3) Basophils (%) (Auto) 0 % (0-3) Neutrophils # (Auto) 8.4 x10^3uL (1.8-7.7) Lymphocytes # (Auto) 1.0 x10^3/uL (1.0-4.8) Monocytes # (Auto) 1.4 x10^3/uL (0.0-1.1) Eosinophils # (Auto) 0.1 x10^3/uL (0.0-0.7) Basophils # (Auto) 0.0 x10^3/uL (0.0-0.2) Sodium Level 135 mmol/L (136-145) Potassium Level 4.1 mmol/L (3.5-5.1) Chloride Level 100 mmol/L (98-107) Carbon Dioxide Level 27 mmol/L (21-32) Anion Gap 8 (6-14) Blood Urea Nitrogen 14 mg/dL (7-20) Creatinine 1.1 mg/dL (0.6-1.0) Estimated GFR (Cockcroft-Gault) 59.2 Glucose Level 101 mg/dL (70-99) Calcium Level 8.4 mg/dL (8.5-10.1) Magnesium Level 2.3 mg/dL (1.8-2.4) Microbiology 02/18/19 Urine Culture - Preliminary, Resulted 02/18/19 Urine Culture Result 1 (MER) - Preliminary, Resulted Medications Current Medications Sodium Chloride 1,000 ml @ 1,000 mls/hr 1X ONCE IV Last administered on 02/18/19at 21:44; Start 02/18/19 at 21:30; Stop 02/18/19 at 22:29; Status DC Ondansetron HCl (Zofran) 4 mg PRN Q8HRS PRN IV NAUSEA/VOMITING 1ST CHOICE Last administered on 02/18/19at 21:44; Start 02/18/19 at 21:15; Stop 02/19/19 at 21:14; Status DC Aspirin (Felipe Aspirin) 325 mg 1X ONCE PO Last administered on 02/18/19at 21:44; Start 02/18/19 at 22:00; Stop 02/18/19 at 22:01; Status DC Labetalol HCl (Normodyne Iv Push) 10 mg 1X ONCE IVP Last administered on 02/18/19at 22:47; Start 02/18/19 at 22:30; Stop 02/18/19 at 22:31; Status DC Amlodipine Besylate (Norvasc) 10 mg 1X ONCE PO Last administered on 02/18/19at 22:47; Start 02/18/19 at 22:30; Stop 02/18/19 at 22:31; Status DC Amlodipine Besylate (Norvasc) 10 mg DAILY PO Last administered on 02/19/19 08:05; Start 02/19/19 at 09:00; Stop 02/19/19 at 12:45; Status DC Acetaminophen/ Hydrocodone Bitart (Lortab 7.5/325) 1 tab PRN Q6HRS PRN PO SEVERE PAIN Last administered on 02/21/19 03:20; Start 02/19/19 at 00:45 Metoprolol Tartrate (Lopressor) 25 mg BID PO Last administered on 02/20/19 08:33; Start 02/19/19 at 09:00; Stop 02/20/19 at 12:32; Status DC Tramadol HCl (Ultram) 50 mg PRN Q6HRS PRN PO PAIN MILD TO MOD Last administered on 02/21/19 12:18; Start 02/19/19 at 00:45 Atorvastatin Calcium (Lipitor) 10 mg QHS PO ; Start 02/19/19 at 21:00; Stop 02/19/19 at 21:00; Status DC Enoxaparin Sodium (Lovenox 40mg Syringe) 40 mg Q24H SQ Last administered on 02/21/19 09:09; Start 02/19/19 at 09:00 Labetalol HCl (Normodyne Iv Push) 10 mg PRN Q10MIN PRN IVP HYPERTENSION, SEE COMMENTS; Start 02/19/19 at 09:00 Acetaminophen (Tylenol) 650 mg PRN Q6HRS PRN PO TEMP > 100.4F Last administered on 02/21/19at 12:15; Start 02/19/19 at 09:00 Acetaminophen (Tylenol Supp) 650 mg PRN Q4HRS PRN [place] TEMP > 100.4F; Start 02/19/19 at 09:00 Aspirin (Ecotrin) 325 mg DAILYWBKFT PO Last administered on 02/21/19at 09:08; Start 02/19/19 at 09:00 Aspirin (Aspirin) 300 mg PRN DAILY PRN [place] IF UNABLE TO TAKE PO; Start 02/19/19 at 09:00 Simvastatin (Zocor) 20 mg HS PO Last administered on 02/20/19 20:07; Start 02/19/19 at 21:00 Amlodipine Besylate (Norvasc) 10 mg BID PO Last administered on 02/20/19 08:33; Start 02/19/19 at 21:00; Stop 02/20/19 at 12:30; Status DC Amitriptyline HCl (Elavil) 75 mg QHS PO Last administered on 02/20/19 20:06; Start 02/19/19 at 21:00 Guaifenesin/ Codeine Phosphate (Robitussin Ac) 5 ml PRN Q6HRS PRN PO COUGH 1ST CHOICE Last administered on 02/21/19 09:21; Start 02/19/19 at 22:00 Albuterol/ Ipratropium (Duoneb) 3 ml RTQID NEB Last administered on 02/20/19 21:13; Start 02/19/19 at 23:00 Levofloxacin/ Dextrose 100 ml @ 100 mls/hr Q24H IV Last administered on 02/21/19 12:16; Start 02/20/19 at 12:00 Amlodipine Besylate (Norvasc) 10 mg DAILY PO Last administered on 02/21/19 09:08; Start 02/21/19 at 09:00 Metoprolol Tartrate (Lopressor) 50 mg BID PO Last administered on 02/21/19 09:08; Start 02/20/19 at 21:00 Lisinopril (Prinivil) 10 mg DAILY PO Last administered on 02/21/19 09:08; Start 02/20/19 at 13:00 Metoprolol Tartrate (Lopressor) 25 mg 1X ONCE PO Last administered on 02/20/19 13:30; Start 02/20/19 at 12:45; Stop 02/20/19 at 12:46; Status DC EZETIMIBE (Zetia) 10 mg DAILY PO Last administered on 02/21/19 09:07; Start 02/20/19 at 13:00 Sodium Chloride 1,000 ml @ 75 mls/hr [id number] IV Last administered on 02/21/19 03:18; Start 02/20/19 at 13:15 Active Scripts Active Tramadol Hcl 50 Mg Tablet 50 Mg PO PRN Q6HRS PRN Simvastatin 20 Mg Tablet 1 Tab PO QHS Reported Metoprolol Tartrate 25 Mg Tablet 25 Mg PO BID Amlodipine Besylate 10 Mg Tablet 10 Mg PO BID Hydrocodone-Apap 7.5-325 (Hydrocodone Bit/Acetaminophen) 1 Each Tablet 7.5- 325 Mg PO Amitriptyline Hcl 75 Mg Tablet 75 Mg PO Vitals/I & O Vital Sign - Last 24 Hours 02/20/19 02/20/19 02/20/19 02/20/19 14:51 15:00 15:54 15:59 Temp 99.7 99.7 Pulse 108 Resp 24 B/P (MAP) 213/75 (121) Pulse Ox 97 94 94 O2 Delivery Nasal Cannula Room Air Room Air Nasal Cannula O2 Flow Rate 3.0 3.0 02/20/19 02/20/19 02/20/19 02/20/19 19:15 20:07 20:15 21:14 Temp 102.8 102.8 Pulse 100 100 Resp 24 B/P (MAP) 174/58 (96) 174/58 Pulse Ox 90 93 O2 Delivery Room Air Room Air Nasal Cannula O2 Flow Rate 3.0 02/20/19 02/21/19 02/21/19 02/21/19 23:15 03:47 07:00 08:00 Temp 100.4 99.9 100.4 100.4 99.9 100.4 Pulse 79 78 93 Resp 20 20 18 B/P (MAP) 155/41 (79) 113/50 (71) 162/62 (95) Pulse Ox 90 91 93 O2 Delivery Room Air Room Air Room Air Room Air 02/21/19 02/21/19 02/21/19 02/21/19 09:08 09:08 09:08 11:00 Temp 99.0 99.0 Pulse 93 93 93 81 Resp 20 B/P (MAP) 162/62 162/62 162/62 147/101 (116) Pulse Ox 93 O2 Delivery Room Air Intake and Output 02/20/19 02/20/19 02/21/19 14:59 22:59 06:59 Intake Total 200 ml Output Total 750 ml 350 ml Balance -750 ml -150 ml JALYN VAZQUEZ MD February 21, 2019 14:21
[2019-02-21 15:00] VITALS: BP 158/59
--- NOTE | 2019-02-21 16:40 | NUR ---
SW met with pt to discuss decision on discharging SN[facility] vs HH. Pt reported she wants to go home as her twin grandsons are graduating on 03/01 and she needs to be at their graduation. SW questioned whether pt would be willing to go to SNU for the time between now and the graduation, pt stated she really just wants to go home and also does not want home health as she feels as though they have done everything for her. Pt reported after the graduation she is going to [place] to stay with her daughter for a few weeks until she is back on track. RN notified.
[2019-02-21 19:00] VITALS: BP 188/66
[2019-02-21] MEDS: LACTOBACILLUS RHAMNOSUS GG 1 CAPSULE. PO SCH (19:59)
[2019-02-21] MEDS: SIMVASTATIN 20 MG TABLET PO SCH (19:59)
[2019-02-21] MEDS: AMITRIPTYLINE HCL 25 MG TABLET. PO SCH (20:00)
[2019-02-21 23:00] VITALS: BP 161/63
[2019-02-22] MEDS: HYDROcodone/APAP 7.5/325MG 1 TAB TABLET PO PRN (02:37)
[2019-02-22 03:00] VITALS: BP 147/66
[2019-02-22 04:43] LABS: BASO % 0 % (0-3); EOS # 0.2 x10^3/uL (0.0-0.7); EOS % 2 % (0-3); HEMATOCRIT 27.9 % (36.0-47.0); HEMOGLOBIN 9.2 g/dL (12.0-15.5); LYMPH % 12 % (24-48); MEAN CORPUSCULAR HEMOGLOBIN 28 pg (25-35); MEAN CORPUSCULAR HGB CONC 33 g/dL (31-37); MEAN CORPUSCULAR VOLUME 84 fL (79-100); MONO # 1.1 x10^3/uL (0.0-1.1); MONO % 13 % (0-9); NEUT # 6.3 x10^3uL (1.8-7.7); NEUT % 73 % (31-73); PLATELET COUNT 250 x10^3/uL (140-400); RED BLOOD COUNT 3.32 x10^6/uL (3.50-5.40); RED CELL DISTRIBUTION WIDTH 14.7 % (11.5-14.5); WHITE BLOOD COUNT 8.6 x10^3/uL (4.0-11.0)
[2019-02-22 05:07] LABS: CALCIUM 8.5 mg/dL (8.5-10.1); GFR 66.1; POTASSIUM 4.1 mmol/L (3.5-5.1)
[2019-02-22 07:25] VITALS: BP 149/75
[2019-02-22] MEDS: IPRATRPIUM/ALBUTEROL 0.5/2.5MG 3 ML NEBU. NEB SCH ×2 (07:57→12:00)
[2019-02-22] MEDS: ASPIRIN ENTERIC COATED 325 MG TABLET.DR. PO SCH (08:34)
[2019-02-22] MEDS: LACTOBACILLUS RHAMNOSUS GG 1 CAPSULE. PO SCH (08:34)
[2019-02-22] MEDS: ENOXAPARIN 40 MG/0.4 ML SYRINGE. SQ SCH (08:34)
[2019-02-22] MEDS: EZETIMIBE 10 MG TABLET. PO SCH (08:34)
[2019-02-22] MEDS: LISINOPRIL 10 MG TABLET PO SCH (08:35)
[2019-02-22] MEDS: METOPROLOL TART IMMED RELEASE 25 MG TABLET. PO SCH (08:36)
[2019-02-22] MEDS: amLODIPine BESYLATE 10 MG TABLET PO SCH (08:36)
[2019-02-22] MEDS: IV NORMAL SALINE 1000ML BAG 1,000 ML IV SCH (08:46)
--- NOTE | 2019-02-22 10:53 | PDOC ---
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 of no clinical significance, left vertebral is likely dominant Brainstem cavernous hemangioma Intracranial aneurysm, carotid artery Anxiety and depression Dysuria, better Hyperlipidemia Plan No additional neurological studies needed Continue aspirin Hyperlipidemia management per internal medicine, there is no sign of a stroke or TIA so I will not automatically increase statin Okay for discharge Follow-up with neurology as needed Subjective Feels much better, wants to go home Objective Vital Signs Date Time Temp Pulse Resp B/P (MAP) Pulse Ox O2 Delivery O2 Flow Rate FiO2 02/22/19 09:32 92 Room Air 3.0 02/22/19 08:36 103 149/75 02/22/19 07:25 98.7 18 98.7 Intake and Output 02/22/19 07:00 Intake Total 2270 ml Output Total 1000 ml Balance 1270 ml Intake Oral 1370 ml IV Total 900 ml Output Urine Total 1000 ml # Voids 3 PHYSICAL EXAM Alert. Oriented to time, place and person. PERRL. EOMI. CN: no focal findings. Muscle tone: normal. Muscle strength: 4/5 DTR: 2+ Plantar reflex: flexor Gait: not examined in bed. Sensory exam: no abnormal findings. No cerebellar signs elicited. Review of Relevant I have reviewed the following items renard (where applicable) has been applied. Labs Laboratory Tests Test 02/21/19 06:30 02/22/19 04:15 White Blood Count 10.9 x10^3/uL (4.0-11.0) 8.6 x10^3/uL (4.0-11.0) Red Blood Count 3.73 x10^6/uL (3.50-5.40) 3.32 x10^6/uL (3.50-5.40) Hemoglobin 10.4 g/dL (12.0-15.5) 9.2 g/dL (12.0-15.5) Hematocrit 31.6 % (36.0-47.0) 27.9 % (36.0-47.0) Mean Corpuscular Volume 85 fL (79-100) 84 fL (79-100) Mean Corpuscular Hemoglobin 28 pg (25-35) 28 pg (25-35) Mean Corpuscular Hemoglobin Concent 33 g/dL (31-37) 33 g/dL (31-37) Red Cell Distribution Width 14.8 % (11.5-14.5) 14.7 % (11.5-14.5) Platelet Count 251 x10^3/uL (140-400) 250 x10^3/uL (140-400) Neutrophils (%) (Auto) 76 % (31-73) 73 % (31-73) Lymphocytes (%) (Auto) 10 % (24-48) 12 % (24-48) Monocytes (%) (Auto) 13 % (0-9) 13 % (0-9) Eosinophils (%) (Auto) 1 % (0-3) 2 % (0-3) Basophils (%) (Auto) 0 % (0-3) 0 % (0-3) Neutrophils # (Auto) 8.4 x10^3uL (1.8-7.7) 6.3 x10^3uL (1.8-7.7) Lymphocytes # (Auto) 1.0 x10^3/uL (1.0-4.8) 1.0 x10^3/uL (1.0-4.8) Monocytes # (Auto) 1.4 x10^3/uL (0.0-1.1) 1.1 x10^3/uL (0.0-1.1) Eosinophils # (Auto) 0.1 x10^3/uL (0.0-0.7) 0.2 x10^3/uL (0.0-0.7) Basophils # (Auto) 0.0 x10^3/uL (0.0-0.2) 0.0 x10^3/uL (0.0-0.2) Sodium Level 135 mmol/L (136-145) 136 mmol/L (136-145) Potassium Level 4.1 mmol/L (3.5-5.1) 4.1 mmol/L (3.5-5.1) Chloride Level 100 mmol/L (98-107) 102 mmol/L (98-107) Carbon Dioxide Level 27 mmol/L (21-32) 24 mmol/L (21-32) Anion Gap 8 (6-14) 10 (6-14) Blood Urea Nitrogen 14 mg/dL (7-20) 13 mg/dL (7-20) Creatinine 1.1 mg/dL (0.6-1.0) 1.0 mg/dL (0.6-1.0) Estimated GFR (Cockcroft-Gault) 59.2 66.1 Glucose Level 101 mg/dL (70-99) 128 mg/dL (70-99) Calcium Level 8.4 mg/dL (8.5-10.1) 8.5 mg/dL (8.5-10.1) Magnesium Level 2.3 mg/dL (1.8-2.4) Laboratory Tests Test 02/22/19 04:15 White Blood Count 8.6 x10^3/uL (4.0-11.0) Red Blood Count 3.32 x10^6/uL (3.50-5.40) Hemoglobin 9.2 g/dL (12.0-15.5) Hematocrit 27.9 % (36.0-47.0) Mean Corpuscular Volume 84 fL (79-100) Mean Corpuscular Hemoglobin 28 pg (25-35) Mean Corpuscular Hemoglobin Concent 33 g/dL (31-37) Red Cell Distribution Width 14.7 % (11.5-14.5) Platelet Count 250 x10^3/uL (140-400) Neutrophils (%) (Auto) 73 % (31-73) Lymphocytes (%) (Auto) 12 % (24-48) Monocytes (%) (Auto) 13 % (0-9) Eosinophils (%) (Auto) 2 % (0-3) Basophils (%) (Auto) 0 % (0-3) Neutrophils # (Auto) 6.3 x10^3uL (1.8-7.7) Lymphocytes # (Auto) 1.0 x10^3/uL (1.0-4.8) Monocytes # (Auto) 1.1 x10^3/uL (0.0-1.1) Eosinophils # (Auto) 0.2 x10^3/uL (0.0-0.7) Basophils # (Auto) 0.0 x10^3/uL (0.0-0.2) Sodium Level 136 mmol/L (136-145) Potassium Level 4.1 mmol/L (3.5-5.1) Chloride Level 102 mmol/L (98-107) Carbon Dioxide Level 24 mmol/L (21-32) Anion Gap 10 (6-14) Blood Urea Nitrogen 13 mg/dL (7-20) Creatinine 1.0 mg/dL (0.6-1.0) Estimated GFR (Cockcroft-Gault) 66.1 Glucose Level 128 mg/dL (70-99) Calcium Level 8.5 mg/dL (8.5-10.1) Microbiology 02/18/19 Urine Culture - Final, Complete 02/18/19 Urine Culture Result 1 (MER) - Final, Complete 02/18/19 Antimicrobic Susceptibility - Final, Complete Medications Current Medications Sodium Chloride 1,000 ml @ 1,000 mls/hr 1X ONCE IV Last administered on 02/18/19at 21:44; Start 02/18/19 at 21:30; Stop 02/18/19 at 22:29; Status DC Ondansetron HCl (Zofran) 4 mg PRN Q8HRS PRN IV NAUSEA/VOMITING 1ST CHOICE Last administered on 02/18/19at 21:44; Start 02/18/19 at 21:15; Stop 02/19/19 at 21:14; Status DC Aspirin (Felipe Aspirin) 325 mg 1X ONCE PO Last administered on 02/18/19 21:44; Start 02/18/19 at 22:00; Stop 02/18/19 at 22:01; Status DC Labetalol HCl (Normodyne Iv Push) 10 mg 1X ONCE IVP Last administered on 02/18/19at 22:47; Start 02/18/19 at 22:30; Stop 02/18/19 at 22:31; Status DC Amlodipine Besylate (Norvasc) 10 mg 1X ONCE PO Last administered on 02/18/19at 22:47; Start 02/18/19 at 22:30; Stop 02/18/19 at 22:31; Status DC Amlodipine Besylate (Norvasc) 10 mg DAILY PO Last administered on 02/19/19at 08:05; Start 02/19/19 at 09:00; Stop 02/19/19 at 12:45; Status DC Acetaminophen/ Hydrocodone Bitart (Lortab 7.5/325) 1 tab PRN Q6HRS PRN PO SEVERE PAIN Last administered on 02/22/19at 02:37; Start 02/19/19 at 00:45 Metoprolol Tartrate (Lopressor) 25 mg BID PO Last administered on 02/20/19 08:33; Start 02/19/19 at 09:00; Stop 02/20/19 at 12:32; Status DC Tramadol HCl (Ultram) 50 mg PRN Q6HRS PRN PO PAIN MILD TO MOD Last administered on 02/21/19 20:06; Start 02/19/19 at 00:45 Atorvastatin Calcium (Lipitor) 10 mg QHS PO ; Start 02/19/19 at 21:00; Stop 02/19/19 at 21:00; Status DC Enoxaparin Sodium (Lovenox 40mg Syringe) 40 mg Q24H SQ Last administered on 02/22/19 08:34; Start 02/19/19 at 09:00 Labetalol HCl (Normodyne Iv Push) 10 mg PRN Q10MIN PRN IVP HYPERTENSION, SEE COMMENTS; Start 02/19/19 at 09:00 Acetaminophen (Tylenol) 650 mg PRN Q6HRS PRN PO TEMP > 100.4F Last administered on 02/21/19 12:15; Start 02/19/19 at 09:00 Acetaminophen (Tylenol Supp) 650 mg PRN Q4HRS PRN [place] TEMP > 100.4F; Start 02/19/19 at 09:00 Aspirin (Ecotrin) 325 mg DAILYWBKFT PO Last administered on 02/22/19 08:34; St art 02/19/19 at 09:00 Aspirin (Aspirin) 300 mg PRN DAILY PRN [place] IF UNABLE TO TAKE PO; Start 02/19/19 at 09:00 Simvastatin (Zocor) 20 mg HS PO Last administered on 02/21/19 19:59; Start 02/19/19 at 21:00 Amlodipine Besylate (Norvasc) 10 mg BID PO Last administered on 02/20/19 08:33; Start 02/19/19 at 21:00; Stop 02/20/19 at 12:30; Status DC Amitriptyline HCl (Elavil) 75 mg QHS PO Last administered on 02/21/19 20:00; Start 02/19/19 at 21:00 Guaifenesin/ Codeine Phosphate (Robitussin Ac) 5 ml PRN Q6HRS PRN PO COUGH 1ST CHOICE Last administered on 02/21/19 09:21; Start 02/19/19 at 22:00 Albuterol/ Ipratropium (Duoneb) 3 ml RTQID NEB Last administered on 02/22/19 07:57; Start 02/19/19 at 23:00 Levofloxacin/ Dextrose 100 ml @ 100 mls/hr Q24H IV Last administered on 02/21/19 12:16; Start 02/20/19 at 12:00; Stop 02/21/19 at 15:58; Status DC Amlodipine Besylate (Norvasc) 10 mg DAILY PO Last administered on 02/22/19 08:36; Start 02/21/19 at 09:00 Metoprolol Tartrate (Lopressor) 50 mg BID PO Last administered on 02/22/19 08:36; Start 02/20/19 at 21:00 Lisinopril (Prinivil) 10 mg DAILY PO Last administered on 02/22/19 08:35; Start 02/20/19 at 13:00 Metoprolol Tartrate (Lopressor) 25 mg 1X ONCE PO Last administered on 02/20/19 13:30; Start 02/20/19 at 12:45; Stop 02/20/19 at 12:46; Status DC EZETIMIBE (Zetia) 10 mg DAILY PO Last administered on 02/22/19 08:34; Start 02/20/19 at 13:00 Sodium Chloride 1,000 ml @ 75 mls/hr [id number] IV Last administered on 02/22/19 08:46; Start 02/20/19 at 13:15 Lactobacillus Rhamnosus (Culturelle) 1 cap BID PO Last administered on 02/22/19 08:34; Start 02/21/19 at 21:00 Levofloxacin/ Dextrose 50 ml @ 50 mls/hr Q24H IV ; Start 02/22/19 at 12:00 Active Scripts Active Tramadol Hcl 50 Mg Tablet 50 Mg PO PRN Q6HRS PRN Simvastatin 20 Mg Tablet 1 Tab PO QHS Reported Metoprolol Tartrate 25 Mg Tablet 25 Mg PO BID Amlodipine Besylate 10 Mg Tablet 10 Mg PO BID Hydrocodone-Apap 7.5-325 (Hydrocodone Bit/Acetaminophen) 1 Each Tablet 7.5- 325 Mg PO Amitriptyline Hcl 75 Mg Tablet 75 Mg PO Vitals/I & O Vital Sign - Last 24 Hours 02/21/19 02/21/19 02/21/19 02/21/19 11:00 15:00 19:00 20:03 Temp 99.0 99.3 98.8 99.0 99.3 98.8 Pulse 81 80 99 80 Resp 20 18 20 B/P (MAP) 147/101 (116) 158/59 (92) 188/66 (106) 188/89 Pulse Ox 93 94 99 O2 Delivery Room Air Room Air Room Air 02/21/19 02/21/19 02/21/19 02/21/19 20:06 20:57 21:30 23:00 Temp 100.8 100.8 Pulse 83 Resp 16 16 20 B/P (MAP) 161/63 (95) Pulse Ox 90 96 94 O2 Delivery Room Air Room Air Room Air O2 Flow Rate 3.0 2.0 02/22/19 02/22/19 02/22/19 02/22/19 02:37 03:00 03:30 07:25 Temp 99.2 98.7 99.2 98.7 Pulse 87 103 Resp 22 20 14 18 B/P (MAP) 147/66 (93) 149/75 (99) Pulse Ox 93 92 O2 Delivery Room Air Room Air Nasal Cannula Room Air O2 Flow Rate 2.0 02/22/19 02/22/19 02/22/19 02/22/19 08:35 08:36 08:36 09:32 Pulse 103 103 103 B/P (MAP) 149/75 149/75 149/75 Pulse Ox 92 O2 Delivery Room Air O2 Flow Rate 3.0 Intake and Output 02/21/19 02/21/19 02/22/19 15:00 23:00 07:00 Intake Total 300 ml 590 ml 1380 ml Output Total 1000 ml Balance 300 ml 590 ml 380 ml JALYN VAZQUEZ MD February 22, 2019 10:53
[2019-02-22 10:54] VITALS: BP 115/52
--- NOTE | 2019-02-22 11:53 | PDOC ---
PROGRESS NOTES Chief Complaint Chief Complaint TIA Hx CVA, r/o acute UTI dysphagia leg weakness blurry vision htn, chronic diastolic CHF History of Present Illness History of Present Illness Patient seen and examined. WBC trending down. Patient denies any pain, N/V, chills Patient feels well and desires to go home Vitals Vitals Vital Signs Date Time Temp Pulse Resp B/P (MAP) Pulse Ox O2 Delivery O2 Flow Rate FiO2 02/22/19 10:54 99.1 73 20 115/52 (73) 97 Room Air 99.1 02/22/19 09:32 3.0 Physical Exam General: Alert, Oriented X3, Cooperative, No acute distress Heart: Regular rate (SR), Normal S1, Normal S2, Other (2/6 systolic murmur to LLS border) Lungs: Clear Abdomen: Soft, No tenderness Extremities: No cyanosis, No edema Skin: No breakdown, No significant lesion Labs LABS Laboratory Tests Test 02/22/19 04:15 White Blood Count 8.6 x10^3/uL (4.0-11.0) Red Blood Count 3.32 x10^6/uL (3.50-5.40) Hemoglobin 9.2 g/dL (12.0-15.5) Hematocrit 27.9 % (36.0-47.0) Mean Corpuscular Volume 84 fL (79-100) Mean Corpuscular Hemoglobin 28 pg (25-35) Mean Corpuscular Hemoglobin Concent 33 g/dL (31-37) Red Cell Distribution Width 14.7 % (11.5-14.5) Platelet Count 250 x10^3/uL (140-400) Neutrophils (%) (Auto) 73 % (31-73) Lymphocytes (%) (Auto) 12 % (24-48) Monocytes (%) (Auto) 13 % (0-9) Eosinophils (%) (Auto) 2 % (0-3) Basophils (%) (Auto) 0 % (0-3) Neutrophils # (Auto) 6.3 x10^3uL (1.8-7.7) Lymphocytes # (Auto) 1.0 x10^3/uL (1.0-4.8) Monocytes # (Auto) 1.1 x10^3/uL (0.0-1.1) Eosinophils # (Auto) 0.2 x10^3/uL (0.0-0.7) Basophils # (Auto) 0.0 x10^3/uL (0.0-0.2) Sodium Level 136 mmol/L (136-145) Potassium Level 4.1 mmol/L (3.5-5.1) Chloride Level 102 mmol/L (98-107) Carbon Dioxide Level 24 mmol/L (21-32) Anion Gap 10 (6-14) Blood Urea Nitrogen 13 mg/dL (7-20) Creatinine 1.0 mg/dL (0.6-1.0) Estimated GFR (Cockcroft-Gault) 66.1 Glucose Level 128 mg/dL (70-99) Calcium Level 8.5 mg/dL (8.5-10.1) Review of Systems Review of Systems Patient denies abdominal pain Patient denies GIORDANO Assessment and Plan Assessmemt and Plan Problems Medical Problems: (1) Generalized weakness Status: Acute Assessment: TIA Hx CVA, r/o acute UTI dysphagia leg weakness blurry vision htn, chronic diastolic CHF Plan: Antibiotics Home meds DVT PPx: Lovenox Discharge Dispo: Probable discharge to home Neuro and Cardio Following Comment Review of Relevant I have reviewed the following items renard (where applicable) has been applied. Labs Laboratory Tests Test 02/21/19 06:30 02/22/19 04:15 White Blood Count 10.9 x10^3/uL (4.0-11.0) 8.6 x10^3/uL (4.0-11.0) Red Blood Count 3.73 x10^6/uL (3.50-5.40) 3.32 x10^6/uL (3.50-5.40) Hemoglobin 10.4 g/dL (12.0-15.5) 9.2 g/dL (12.0-15.5) Hematocrit 31.6 % (36.0-47.0) 27.9 % (36.0-47.0) Mean Corpuscular Volume 85 fL (79-100) 84 fL (79-100) Mean Corpuscular Hemoglobin 28 pg (25-35) 28 pg (25-35) Mean Corpuscular Hemoglobin Concent 33 g/dL (31-37) 33 g/dL (31-37) Red Cell Distribution Width 14.8 % (11.5-14.5) 14.7 % (11.5-14.5) Platelet Count 251 x10^3/uL (140-400) 250 x10^3/uL (140-400) Neutrophils (%) (Auto) 76 % (31-73) 73 % (31-73) Lymphocytes (%) (Auto) 10 % (24-48) 12 % (24-48) Monocytes (%) (Auto) 13 % (0-9) 13 % (0-9) Eosinophils (%) (Auto) 1 % (0-3) 2 % (0-3) Basophils (%) (Auto) 0 % (0-3) 0 % (0-3) Neutrophils # (Auto) 8.4 x10^3uL (1.8-7.7) 6.3 x10^3uL (1.8-7.7) Lymphocytes # (Auto) 1.0 x10^3/uL (1.0-4.8) 1.0 x10^3/uL (1.0-4.8) Monocytes # (Auto) 1.4 x10^3/uL (0.0-1.1) 1.1 x10^3/uL (0.0-1.1) Eosinophils # (Auto) 0.1 x10^3/uL (0.0-0.7) 0.2 x10^3/uL (0.0-0.7) Basophils # (Auto) 0.0 x10^3/uL (0.0-0.2) 0.0 x10^3/uL (0.0-0.2) Sodium Level 135 mmol/L (136-145) 136 mmol/L (136-145) Potassium Level 4.1 mmol/L (3.5-5.1) 4.1 mmol/L (3.5-5.1) Chloride Level 100 mmol/L (98-107) 102 mmol/L (98-107) Carbon Dioxide Level 27 mmol/L (21-32) 24 mmol/L (21-32) Anion Gap 8 (6-14) 10 (6-14) Blood Urea Nitrogen 14 mg/dL (7-20) 13 mg/dL (7-20) Creatinine 1.1 mg/dL (0.6-1.0) 1.0 mg/dL (0.6-1.0) Estimated GFR (Cockcroft-Gault) 59.2 66.1 Glucose Level 101 mg/dL (70-99) 128 mg/dL (70-99) Calcium Level 8.4 mg/dL (8.5-10.1) 8.5 mg/dL (8.5-10.1) Magnesium Level 2.3 mg/dL (1.8-2.4) Laboratory Tests Test 02/22/19 04:15 White Blood Count 8.6 x10^3/uL (4.0-11.0) Red Blood Count 3.32 x10^6/uL (3.50-5.40) Hemoglobin 9.2 g/dL (12.0-15.5) Hematocrit 27.9 % (36.0-47.0) Mean Corpuscular Volume 84 fL (79-100) Mean Corpuscular Hemoglobin 28 pg (25-35) Mean Corpuscular Hemoglobin Concent 33 g/dL (31-37) Red Cell Distribution Width 14.7 % (11.5-14.5) Platelet Count 250 x10^3/uL (140-400) Neutrophils (%) (Auto) 73 % (31-73) Lymphocytes (%) (Auto) 12 % (24-48) Monocytes (%) (Auto) 13 % (0-9) Eosinophils (%) (Auto) 2 % (0-3) Basophils (%) (Auto) 0 % (0-3) Neutrophils # (Auto) 6.3 x10^3uL (1.8-7.7) Lymphocytes # (Auto) 1.0 x10^3/uL (1.0-4.8) Monocytes # (Auto) 1.1 x10^3/uL (0.0-1.1) Eosinophils # (Auto) 0.2 x10^3/uL (0.0-0.7) Basophils # (Auto) 0.0 x10^3/uL (0.0-0.2) Sodium Level 136 mmol/L (136-145) Potassium Level 4.1 mmol/L (3.5-5.1) Chloride Level 102 mmol/L (98-107) Carbon Dioxide Level 24 mmol/L (21-32) Anion Gap 10 (6-14) Blood Urea Nitrogen 13 mg/dL (7-20) Creatinine 1.0 mg/dL (0.6-1.0) Estimated GFR (Cockcroft-Gault) 66.1 Glucose Level 128 mg/dL (70-99) Calcium Level 8.5 mg/dL (8.5-10.1) Microbiology 02/18/19 Urine Culture - Final, Complete 02/18/19 Urine Culture Result 1 (MER) - Final, Complete 02/18/19 Antimicrobic Susceptibility - Final, Complete Medications Current Medications Sodium Chloride 1,000 ml @ 1,000 mls/hr 1X ONCE IV Last administered on 02/18/19 21:44; Start 02/18/19 at 21:30; Stop 02/18/19 at 22:29; Status DC Ondansetron HCl (Zofran) 4 mg PRN Q8HRS PRN IV NAUSEA/VOMITING 1ST CHOICE Last administered on 02/18/19at 21:44; Start 02/18/19 at 21:15; Stop 02/19/19 at 21:14; Status DC Aspirin (Felipe Aspirin) 325 mg 1X ONCE PO Last administered on 02/18/19at 21:44; Start 02/18/19 at 22:00; Stop 02/18/19 at 22:01; Status DC Labetalol HCl (Normodyne Iv Push) 10 mg 1X ONCE IVP Last administered on 02/18/19at 22:47; Start 02/18/19 at 22:30; Stop 02/18/19 at 22:31; Status DC Amlodipine Besylate (Norvasc) 10 mg 1X ONCE PO Last administered on 02/18/19at 22:47; Start 02/18/19 at 22:30; Stop 02/18/19 at 22:31; Status DC Amlodipine Besylate (Norvasc) 10 mg DAILY PO Last administered on 02/19/19at 08:05; Start 02/19/19 at 09:00; Stop 02/19/19 at 12:45; Status DC Acetaminophen/ Hydrocodone Bitart (Lortab 7.5/325) 1 tab PRN Q6HRS PRN PO SEVERE PAIN Last administered on 02/22/19 02:37; Start 02/19/19 at 00:45 Metoprolol Tartrate (Lopressor) 25 mg BID PO Last administered on 02/20/19 08:33; Start 02/19/19 at 09:00; Stop 02/20/19 at 12:32; Status DC Tramadol HCl (Ultram) 50 mg PRN Q6HRS PRN PO PAIN MILD TO MOD Last administered on 02/21/19 20:06; Start 02/19/19 at 00:45 Atorvastatin Calcium (Lipitor) 10 mg QHS PO ; Start 02/19/19 at 21:00; Stop 02/19/19 at 21:00; Status DC Enoxaparin Sodium (Lovenox 40mg Syringe) 40 mg Q24H SQ Last administered on 08:34; Start 02/19/19 at 09:00 Labetalol HCl (Normodyne Iv Push) 10 mg PRN Q10MIN PRN IVP HYPERTENSION, SEE COMMENTS; Start 02/19/19 at 09:00 Acetaminophen (Tylenol) 650 mg PRN Q6HRS PRN PO TEMP > 100.4F Last administered on 02/21/19 12:15; Start 02/19/19 at 09:00 Acetaminophen (Tylenol Supp) 650 mg PRN Q4HRS PRN [place] TEMP > 100.4F; Start 02/19/19 at 09:00 Aspirin (Ecotrin) 325 mg DAILYWBKFT PO Last administered on 02/22/19 08:34; Start 02/19/19 at 09:00 Aspirin (Aspirin) 300 mg PRN DAILY PRN [place] IF UNABLE TO TAKE PO; Start 02/19/19 at 09:00 Simvastatin (Zocor) 20 mg HS PO Last administered on 02/21/19 19:59; Start 02/19/19 at 21:00 Amlodipine Besylate (Norvasc) 10 mg BID PO Last administered on 02/20/19 08:33; Start 02/19/19 at 21:00; Stop 02/20/19 at 12:30; Status DC Amitriptyline HCl (Elavil) 75 mg QHS PO Last administered on 02/21/19 20:00; Start 02/19/19 at 21:00 Guaifenesin/ Codeine Phosphate (Robitussin Ac) 5 ml PRN Q6HRS PRN PO COUGH 1ST CHOICE Last administered on 02/21/19 09:21; Start 02/19/19 at 22:00 Albuterol/ Ipratropium (Duoneb) 3 ml RTQID NEB Last administered on 02/22/19 07:57; Start 02/19/19 at 23:00 Levofloxacin/ Dextrose 100 ml @ 100 mls/hr Q24H IV Last administered on 02/21/19 12:16; Start 02/20/19 at 12:00; Stop 02/21/19 at 15:58; Status DC Amlodipine Besylate (Norvasc) 10 mg DAILY PO Last administered on 02/22/19 08:36; Start 02/21/19 at 09:00 Metoprolol Tartrate (Lopressor) 50 mg BID PO Last administered on 02/22/19 08:36; Start 02/20/19 at 21:00 Lisinopril (Prinivil) 10 mg DAILY PO Last administered on 02/22/19 08:35; Start 02/20/19 at 13:00 Metoprolol Tartrate (Lopressor) 25 mg 1X ONCE PO Last administered on 02/20/19at 13:30; Start 02/20/19 at 12:45; Stop 02/20/19 at 12:46; Status DC EZETIMIBE (Zetia) 10 mg DAILY PO Last administered on 02/22/19 08:34; Start 02/20/19 at 13:00 Sodium Chloride 1,000 ml @ 75 mls/hr [id number] IV Last administered on 02/22/19 08:46; Start 02/20/19 at 13:15 Lactobacillus Rhamnosus (Culturelle) 1 cap BID PO Last administered on 02/22/19 08:34; Start 02/21/19 at 21:00 Levofloxacin/ Dextrose 50 ml @ 50 mls/hr Q24H IV ; Start 02/22/19 at 12:00 Active Scripts Active Tramadol Hcl 50 Mg Tablet 50 Mg PO PRN Q6HRS PRN Simvastatin 20 Mg Tablet 1 Tab PO QHS Reported Metoprolol Tartrate 25 Mg Tablet 25 Mg PO BID Amlodipine Besylate 10 Mg Tablet 10 Mg PO BID Hydrocodone-Apap 7.5-325 (Hydrocodone Bit/Acetaminophen) 1 Each Tablet 7.5- 325 Mg PO Amitriptyline Hcl 75 Mg Tablet 75 Mg PO Vitals/I & O Vital Sign - Last 24 Hours 5/2/19 5/2/19 5/2/19 5/2/19 15:00 19:00 20:03 20:06 Temp 99.3 98.8 99.3 98.8 Pulse 80 99 80 Resp 18 20 16 B/P (MAP) 158/59 (92) 188/66 (106) 188/89 Pulse Ox 94 99 O2 Delivery Room Air Room Air Room Air 02/21/19 02/21/19 02/21/19 02/22/19 20:57 21:30 23:00 02:37 Temp 100.8 100.8 Pulse 83 Resp 16 22 B/P (MAP) 161/63 (95) Pulse Ox 90 96 94 O2 Delivery Room Air Room Air Room Air O2 Flow Rate 3.0 2.0 02/22/19 02/22/19 02/22/19 02/22/19 03:00 03:30 07:25 08:35 Temp 99.2 98.7 99.2 98.7 Pulse 87 103 103 Resp 20 18 B/P (MAP) 147/66 (93) 149/75 (99) 149/75 Pulse Ox 93 92 O2 Delivery Room Air Nasal Cannula Room Air O2 Flow Rate 2.0 02/22/19 02/22/19 02/22/19 02/22/19 08:36 08:36 09:32 10:54 Temp 99.1 99.1 Pulse 103 103 73 Resp 20 B/P (MAP) 149/75 149/75 115/52 (73) Pulse Ox 92 97 O2 Delivery Room Air Room Air O2 Flow Rate 3.0 Intake and Output 02/21/19 02/21/19 02/22/19 14:59 22:59 06:59 Intake Total 300 ml 590 ml 1380 ml Output Total 1000 ml Balance 300 ml 590 ml 380 ml CASTLE,NIAL K III DO February 22, 2019 11:53
--- NOTE | 2019-02-22 15:00 | NUR ---
Pagefernando Robison at 1421 regarding clarification of levofloxacin, no new orders received. Addendum: 02/22/19 at 1797 by COOKIE CONTRERAS RN re take home med (antibiotic)
--- NOTE | 2019-02-22 17:35 | NUR ---
Discharge Note: STEV[facility] [address] Discharge instructions and discharge home medications reviewed with patient and a copy given. All questions have been answered and understanding verbalized. The following instructions and handouts were given: Hypertension, UTI handout FF up with PCP in a week. Call MD if symptoms persist, fever. Ff up with Dr. Womack on March 28, 1pm. Discontinued lines and drains: peripheral IV intact, patient tolerated removal, no complications noted. Patient discharged to home accompanied by family member via wheelchair at 1430.
--- NOTE | 2019-02-22 20:32 | DS ---
DATE OF DISCHARGE: 02/22/2019 ADMISSION DIAGNOSES: Weakness, transient ischemic attack, history of old stroke, urinary tract infection, dysphagia, leg weakness, blurred vision, chronic congestive heart failure. DISCHARGE DIAGNOSES: Resolving weakness, resolving transient ischemic attack. CONSULTS: Neurology. PROCEDURES: None. HOSPITAL COURSE: The patient is a pleasant middle-aged female who presented with a TIA and weakness. She was admitted. We consulted Neurology. The workup so far has been pretty benign. Clinically, she is doing great. I saw and examined her this morning. Her heart tones were normal. Her lungs were clear. She was moving well, wanted to go home. We plan to discharge home if okay with the consultants. DISPOSITION: Home. ACTIVITY: As tolerated. DIET: Low sodium. MEDICATIONS: Please see the MRAD. TOTAL TIME: 32 minutes. TOMMYL Urbano NELSON DO DR: DOTTY/zay JOB#: [id number] / [id number]
== END 2019-02-22 14:21 | disposition home or self-care (01) | DRG 871 ==
LOC: ER 20:03 → 6 SOUTH 20:57
PROVIDERS: ADMIT Family Medicine; ATTEND Family Medicine
DX: A41.9 Sepsis, unspecified organism (principal); G93.41 Metabolic encephalopathy; N39.0 Urinary tract infection, site not specified; I50.32 Chronic diastolic (congestive) heart failure; I47.2 Ventricular tachycardia; G45.9 Transient cerebral ischemic attack, unspecified; D18.00 Hemangioma unspecified site; E78.00 Pure hypercholesterolemia, unspecified; E78.5 Hyperlipidemia, unspecified; F32.9 Major depressive disorder, single episode, unspecified; F41.9 Anxiety disorder, unspecified; I11.0 Hypertensive heart disease with heart failure; I48.91 Unspecified atrial fibrillation; I67.1 Cerebral aneurysm, nonruptured; R13.10 Dysphagia, unspecified; Z82.49 Family history of ischemic heart disease and other diseases of the circulatory system; Z85.41 Personal history of malignant neoplasm of cervix uteri; Z86.73 Personal history of transient ischemic attack (TIA), and cerebral infarction without residual deficits; Z87.891 Personal history of nicotine dependence; Z90.710 Acquired absence of both cervix and uterus; M19.90 Unspecified osteoarthritis, unspecified site
CPT/HCPCS: 36415; 70450; 70551; 71045; 80048; 80053; 80061; 81001; 82553; 83605; 83690; 83735; 84443; 84484; 85025; 85610; 85730; 87086; 87186; 93005; 93306; 93880; 94640; 94660; 96361; 96374; J1650; J1956; J2405; J3490; J7030; J7620; 92610; 99285-25